=== PATIENT | female | born 1950 | race African-American/Black ===

== ENCOUNTER 2019-09-01 11:41 | Emergency (ER) | payer MEDICARE, OTHER ==
[~2019-09-01] VITALS: Ht 160 cm; Wt 136.1 kg
[~2019-09-01 11:41] MED LIST: AMLO10TA13 PO; CARV3.1240 PO; ENAL20TA PO
[2019-09-01 13:14] LABS: Basophils # (auto) 0 uL; Basophils % (auto) 0.8 % (0.0-2.0); Eosinophils # (auto) 0.1 uL; Lymphocytes # (auto) 2.2 uL; Neutrophils # (auto) 3.4 uL
[2019-09-01 13:15] LABS: Hematocrit 47.7 % (36.0-46.0); Hemoglobin 14.9 g/dL (12.2-16.2); Lymphocytes % (auto) 36.4 % (10.0-50.0); Mean Corpuscular Hemoglobin 21.3 pg (28.0-32.0); Mean Corpuscular Hgb Conc. 31.2 g/dL (32.0-36.0); Mean Corpuscular Volume 68.4 fL (80.0-100.0); Monocytes # (auto) 0.4 uL; Neutrophils % (auto) 54.8 % (37.0-80.0); Nucleated Red Blood Cells % 0.2 %; Platelet Count (auto) 270 10^3/uL (140-450); Red Blood Cells 6.97 10^6/uL (4.0-5.20); Red Cell Distribution Width 16.5 % (11.8-14.3); White Blood Cell 6.1 10^3/uL (4.4-10.8)
[2019-09-01 13:34] LABS: Alanine Aminotransferase 14 U/L (13-56); Albumin 3.1 g/dL (3.4-5.0); Anion Gap 7 (5-15); Aspartate Aminotransferase 9 U/L (15-37); BUN/Creatinine Ratio 22.1; Blood Urea Nitrogen 25 mg/dL (7-18); Calcium 8.7 mg/dL (8.5-10.1); Carbon Dioxide 26 mmol/L (21-32); Chloride 112 mmol/L (98-107); GFR African American 61 mL/min; GFR Non-African American 51 mL/min; Glucose 108 mg/dL (74-106); Potassium 3.5 mmol/L (3.5-5.1); Sodium 145 mmol/L (136-145)
[2019-09-01 13:39] LABS: Alkaline Phosphatase 87 U/L (45-117); Bilirubin, Total 0.3 mg/dL (0.2-1.0); Total Protein 8.3 g/dL (6.4-8.2)
[2019-09-02] VITALS: BP 133/76
== END 2019-09-02 01:20 | disposition home or self-care (01) ==
LOC: EDBD 11:41 → ER 11:41
DX: K43.9 Ventral hernia without obstruction or gangrene (principal); I10 Essential (primary) hypertension; K58.9 Irritable bowel syndrome, unspecified; Z88.8 Allergy status to other drugs, medicaments and biological substances
CPT/HCPCS: 36415; 71045; 74176; 80053; 83735; 84484; 85025; 93005

== ENCOUNTER 2019-10-09 21:11 | Inpatient (IN) | payer MEDICARE, OTHER ==
[~2019-10-09] VITALS: Ht 160 cm; Wt 150.7 kg
[2019-10-09] MEDS ORDERED: cloNIDine HCL 0.1 MG TAB PO ONE (21:30)
[2019-10-09 22:18] LABS: Basophils # (auto) 0 10 ^3/uL (0-0.2); Eosinophils # (auto) 0.1 10 ^3/uL (0-0.8); Hemoglobin 14.6 g/dL (12.2-16.2); Lymphocytes # (auto) 2.4 10 ^3/uL (0.4-5.4); Monocytes # (auto) 0.6 10 ^3/uL (0-1.3); Neutrophils # (auto) 4.2 10 ^3/uL (1.6-8.6)
[2019-10-09 22:20] LABS: Basophils % (auto) 0.3 % (0.0-2.0); Eosinophils % (auto) 1.2 % (0.0-7.0); Hematocrit 46.6 % (36.0-46.0); Mean Corpuscular Hemoglobin 21.7 pg (28.0-32.0); Mean Corpuscular Hgb Conc. 31.3 g/dL (32.0-36.0); Mean Corpuscular Volume 69.1 fL (80.0-100.0); Monocytes % (auto) 8.3 % (0.0-12.0); Neutrophils % (auto) 57.2 % (37.0-80.0); Nucleated Red Blood Cells % 0.1 %; Platelet Count (auto) 250 10^3/uL (140-450); Red Blood Cells 6.74 10^6/uL (4.0-5.20); Red Cell Distribution Width 17.3 % (11.8-14.3); White Blood Cell 7.3 10^3/uL (4.4-10.8)
[2019-10-09 22:36] LABS: INR 0.96 (0.9-1.15); Partial Thromboplastin Time 31.1 sec (23.64-32.05)
[2019-10-09 22:37] LABS: Albumin 3.1 g/dL (3.4-5.0); Calcium 8.9 mg/dL (8.5-10.1); Potassium 3.7 mmol/L (3.5-5.1)
[2019-10-09 22:42] LABS: BUN/Creatinine Ratio 15.9; Bilirubin, Total 0.2 mg/dL (0.2-1.0); Total Protein 8.6 g/dL (6.4-8.2)
[2019-10-10] MEDS ORDERED: ONDANSETRON HCL 4 MG/2 ML VIAL IV PRN (01:30)
[2019-10-10] MEDS ORDERED: MORPHINE SULFATE 4 MG/ML SYR/VIAL IV PRN (01:30)
[2019-10-10] MEDS ORDERED: MORPHINE SULF INJ 2 MG/ML SYRINGE 1ML IV PRN ×2 (01:30→16:15)
[2019-10-10] MEDS ORDERED: NITROGLYCERIN 0.4 MG SL TAB SL PRN ×2 (01:30)
[2019-10-10] MEDS ORDERED: ACETAMINOPHEN 325 MG TAB PO PRN (01:30)
[2019-10-10] MEDS ORDERED: DEXTROSE (50%) 50ML SYRG IV PRN (02:00)
[2019-10-10] MEDS: SODIUM CHLORIDE 0.9% 1,000 ML IV SCH ×3 (03:38→22:40)
[2019-10-10] MEDS: ENOXAPARIN SOD 150 MG/1 ML SYRINGE SC SCH ×2 (03:38→14:08)
[2019-10-10] MEDS: InsuLIN REG 1unit/0.01ml Soln (100units/ml) SC SCH ×4 (04:00→16:00)
[2019-10-10] MEDS: ACCU-CHEK COMFORT CURVE STRIP VI SCH ×4 (04:07→16:08)
[2019-10-10 05:29] VITALS: BP 161/83
[2019-10-10 05:43] VITALS: BP 161/83
--- NOTE | 2019-10-10 05:58 | NUR ---
Telemetry admit from ER XIAO JJ admitted to Telemetry unit after SBAR received. Patient oriented to FAY REED RN primary RN, unit, room, bed, and unit policies regarding patient care and visiting hours. Patient now on continuous telemetry monitoring, tele box #[id number] and telemetry reading on arrival to unit is NSR. Patient is on room air, weighed by bedscale and encouraged to call if they need something. All questions and concerns addressed, patient verbalized understanding. Note: Patient stated chest pain is not as bad as before, vital signs taken and recorded, pericare done since pt had incontinence, noted left buttock healed ulcer.
--- NOTE | 2019-10-10 07:40 | NUR ---
OPENING SHIFT NOTE Care of patient assumed from NOC RN. Patient is AOx4, no S/S of distress, or SOB. Patient has no complaints of pain at this time. Bed is in lowest locked position, side rails up x2, and call light is within reach. Patient educated on POC, verbalized understanding. Will continue to monitor q hr and PRN.
[2019-10-10 09:00] VITALS: BP 161/66
[2019-10-10] MEDS: CLOPIDOGREL BISULFATE 75 MG TAB PO SCH (09:47)
[2019-10-10] MEDS: ASPirin 81 mg TAB PO SCH (09:47)
[2019-10-10] MEDS: DOCUSATE SOD 100 MG CAP PO SCH (09:49)
[2019-10-10] MEDS: LISINOPRIL 20 MG TAB PO SCH (09:50)
[2019-10-10] MEDS: amLODIPine BESYLATE 5 MG TAB PO SCH (09:51)
[2019-10-10 09:54] LABS: Calcium 8.8 mg/dL (8.5-10.1); Potassium 3.7 mmol/L (3.5-5.1)
[2019-10-10] MEDS: CARVEDILOL 3.125 MG TAB PO SCH ×2 (10:00→21:42)
[2019-10-10 10:01] LABS: BUN/Creatinine Ratio 20.3
[2019-10-10 10:45] LABS: Basophils # (auto) 0 10 ^3/uL (0-0.2); Basophils % (auto) 0.4 % (0.0-2.0); Eosinophils # (auto) 0.2 10 ^3/uL (0-0.8); Hemoglobin 14.3 g/dL (12.2-16.2); Lymphocytes # (auto) 3.4 10 ^3/uL (0.4-5.4); Monocytes # (auto) 0.6 10 ^3/uL (0-1.3); Nucleated Red Blood Cells % 0.3 %; Platelet Count (auto) 246 10^3/uL (140-450); Red Cell Distribution Width 17.1 % (11.8-14.3)
[2019-10-10 10:47] LABS: Eosinophils % (auto) 2.5 % (0.0-7.0); Hematocrit 46.6 % (36.0-46.0); Lymphocytes % (auto) 48.7 % (10.0-50.0); Mean Corpuscular Hemoglobin 21.4 pg (28.0-32.0); Mean Corpuscular Hgb Conc. 30.7 g/dL (32.0-36.0); Mean Corpuscular Volume 69.7 fL (80.0-100.0); Monocytes % (auto) 8.3 % (0.0-12.0); Neutrophils # (auto) 2.8 10 ^3/uL (1.6-8.6); Neutrophils % (auto) 40.1 % (37.0-80.0); Red Blood Cells 6.68 10^6/uL (4.0-5.20)
[2019-10-10 12:30] VITALS: BP 119/71
--- NOTE | 2019-10-10 16:35 | NUR ---
IV insertion IV access obtained, via clean sterile technique by inserting 20 gauge catheter at [facility] after 6 attempts. IV secured properly. No trauma to site. Patient tolerated procedure well. Addendum: 10/10/19 at 1836 by SIMÓN FARRELL RN Wrong patient
[2019-10-10] MEDS: MORPHINE SULF INJ 2 MG/ML SYRINGE 1ML IV PRN ×2 (16:42→21:42)
[2019-10-10 17:15] VITALS: BP 126/75
--- NOTE | 2019-10-10 18:27 | NUR ---
Unable to do blood draw. Lab attempted to draw D-dimer, notified me that they were unable to draw blood. surveillance camera technician will send for another tech to draw blood.
--- NOTE | 2019-10-10 19:00 | NUR ---
END OF SHIFT NOTE. Endorsed care to NOC JENNA Marin. Patient has no s/s of SOB, pain, or distress at this time.
[2019-10-10] MEDS: ATORVASTATIN 20 MG TAB PO SCH (21:41)
[2019-10-10 22:00] VITALS: BP 129/66
[2019-10-11] MEDS: ENOXAPARIN SOD 150 MG/1 ML SYRINGE SC SCH ×2 (02:26→15:12)
[2019-10-11 05:00] VITALS: BP 134/53
[2019-10-11 05:49] LABS: Basophils # (auto) 0 10 ^3/uL (0-0.2); Basophils % (auto) 0.2 % (0.0-2.0); Eosinophils # (auto) 0.2 10 ^3/uL (0-0.8); Eosinophils % (auto) 3.8 % (0.0-7.0); Hematocrit 41.5 % (36.0-46.0); Hemoglobin 12.9 g/dL (12.2-16.2); Lymphocytes # (auto) 3.2 10 ^3/uL (0.4-5.4); Lymphocytes % (auto) 52.3 % (10.0-50.0); Mean Corpuscular Hemoglobin 21.7 pg (28.0-32.0); Mean Corpuscular Hgb Conc. 31.1 g/dL (32.0-36.0); Mean Corpuscular Volume 69.7 fL (80.0-100.0); Monocytes # (auto) 0.5 10 ^3/uL (0-1.3); Monocytes % (auto) 8.2 % (0.0-12.0); Neutrophils # (auto) 2.2 10 ^3/uL (1.6-8.6); Neutrophils % (auto) 35.5 % (37.0-80.0); Nucleated Red Blood Cells % 0.1 %; Platelet Count (auto) 228 10^3/uL (140-450); Red Blood Cells 5.96 10^6/uL (4.0-5.20); Red Cell Distribution Width 17.1 % (11.8-14.3); White Blood Cell 6.2 10^3/uL (4.4-10.8)
[2019-10-11 06:29] LABS: BUN/Creatinine Ratio 19.8; Calcium 8.3 mg/dL (8.5-10.1); Potassium 3.6 mmol/L (3.5-5.1)
--- NOTE | 2019-10-11 07:30 | NUR ---
Opening Shift Note RECEIVED REPORT FROM NOC RN. Assumed care of patient, awake and alert. No S/S of distress/SOB or pain. BED IN LOWEST, LOCKED POSITION WITH SIDERAILS UP x2 AND CALL LIGHT WITHIN REACH. Instructed on POC and to call for assist PRN, will continue to monitor for changes Q1hr and PRN.
[2019-10-11 08:45] VITALS: BP 148/59
[2019-10-11] MEDS ORDERED: ADENOSINE IV STA (08:54)
[2019-10-11] MEDS ORDERED: GIVE UN DILUTED IV STA (08:54)
[2019-10-11 10:06] VITALS: BP 134/58
[2019-10-11] MEDS: ASPirin 81 mg TAB PO SCH (11:48)
[2019-10-11] MEDS: CLOPIDOGREL BISULFATE 75 MG TAB PO SCH (11:48)
[2019-10-11] MEDS: DOCUSATE SOD 100 MG CAP PO SCH (11:48)
[2019-10-11] MEDS: CARVEDILOL 3.125 MG TAB PO SCH ×2 (11:49→21:12)
[2019-10-11] MEDS: amLODIPine BESYLATE 5 MG TAB PO SCH (11:49)
[2019-10-11] MEDS: LISINOPRIL 20 MG TAB PO SCH (11:49)
--- NOTE | 2019-10-11 12:00 | NUR ---
RECORDS OBTAINED FROM [facility]. RECORDS PLACED IN HARD CHART.
[2019-10-11 12:57] VITALS: BP 129/96
[2019-10-11] MEDS: SODIUM CHLORIDE 0.9% 1,000 ML IV SCH (16:55)
[2019-10-11 17:00] VITALS: BP 139/66
[2019-10-11] MEDS: MORPHINE SULF INJ 2 MG/ML SYRINGE 1ML IV PRN (19:45)
[2019-10-11] MEDS: ATORVASTATIN 20 MG TAB PO SCH (21:13)
[2019-10-11 21:47] VITALS: BP 138/63
[2019-10-12 02:00] VITALS: BP 129/67
[2019-10-12] MEDS: ENOXAPARIN SOD 150 MG/1 ML SYRINGE SC SCH (02:10)
[2019-10-12 05:00] VITALS: BP 132/70
[2019-10-12] MEDS: SODIUM CHLORIDE 0.9% 1,000 ML IV SCH (06:31)
[2019-10-12 09:00] VITALS: BP 153/70
[2019-10-12] MEDS: CLOPIDOGREL BISULFATE 75 MG TAB PO SCH (09:34)
[2019-10-12] MEDS: amLODIPine BESYLATE 5 MG TAB PO SCH (09:35)
[2019-10-12] MEDS: LISINOPRIL 20 MG TAB PO SCH (09:36)
[2019-10-12] MEDS: CARVEDILOL 3.125 MG TAB PO SCH (09:37)
[2019-10-12] MEDS: DOCUSATE SOD 100 MG CAP PO SCH (09:37)
[2019-10-12] MEDS: ASPirin 81 mg TAB PO SCH (09:37)
[2019-10-12 13:00] VITALS: BP 151/65
[2019-10-12] MEDS ORDERED: ATOR10TA52 PO (14:43)
[2019-10-12] MEDS ORDERED: ASPI81CH43 PO (14:43)
[2019-10-12 15:50] VITALS: BP 151/65
[2019-10-12 17:00] VITALS: BP 148/76
--- NOTE | 2019-10-12 18:50 | NUR ---
DISCHARGE INSTRUCTIONS GIVEN. PT STATED, " I HAVE BEEN OBESE SINCE I WAS BORN. I CANT CHANGE. " ALSO STATED SHE CANNOT STOP SMOKING." IV AND TELE BOX REMOVED. ALL APPROPRIATE PAPERWORK SIGNED. PATIENT DISCHARGED HOME.
== END 2019-10-12 18:45 | disposition home or self-care (01) | DRG 199 ==
LOC: ER 21:12 → TELE 21:13 → TELE-WESTW 10-10 04:25
PROVIDERS: ADMIT Hospitalist; ATTEND Internal Medicine
DX: I16.9 Hypertensive crisis, unspecified (principal); N17.0 Acute kidney failure with tubular necrosis; N18.3 Chronic kidney disease, stage 3 (moderate); E66.01 Morbid (severe) obesity due to excess calories; Z68.43 Body mass index [BMI] 50.0-59.9, adult; E78.5 Hyperlipidemia, unspecified; M19.90 Unspecified osteoarthritis, unspecified site; K42.9 Umbilical hernia without obstruction or gangrene; I12.9 Hypertensive chronic kidney disease with stage 1 through stage 4 chronic kidney disease, or unspecified chronic kidney disease; R73.9 Hyperglycemia, unspecified; G89.4 Chronic pain syndrome; F17.210 Nicotine dependence, cigarettes, uncomplicated; Z79.899 Other long term (current) drug therapy; Z98.51 Tubal ligation status; Z88.8 Allergy status to other drugs, medicaments and biological substances; Z83.3 Family history of diabetes mellitus; Z82.49 Family history of ischemic heart disease and other diseases of the circulatory system
CPT/HCPCS: 36415; 71045; 78452; 80048; 80053; 80061; 82962; 83036; 83880; 84484; 85025; 85379; 85610; 85730; 93005; 93017; G0378; J0153

== ENCOUNTER 2021-09-09 01:10 | Inpatient (IN) | payer OTHER, MEDICAID ==
[~2021-09-09] VITALS: Ht 160 cm; Wt 134.7 kg
[~2021-09-09 01:10] MED LIST changes: +AMLO-496 PO; -AMLO10TA13 PO; +ASPI81CH43 PO; +ATOR10TA52 PO; -ENAL20TA PO; +ENAL20TA8 PO
[2021-09-09 02:48] LABS: Basophils # (auto) 0 10 ^3/uL (0-0.2); Basophils % (auto) 0.6 % (0.0-2.0); Eosinophils # (auto) 0.1 10 ^3/uL (0-0.8); Eosinophils % (auto) 2.5 % (0.0-7.0); Hematocrit 38.1 % (36.0-46.0); Lymphocytes # (auto) 2.3 10 ^3/uL (0.4-5.4); Mean Corpuscular Hemoglobin 21.5 pg (28.0-32.0); Mean Corpuscular Hgb Conc. 31.6 g/dL (32.0-36.0); Mean Corpuscular Volume 68.1 fL (80.0-100.0); Monocytes # (auto) 0.6 10 ^3/uL (0-1.3); Monocytes % (auto) 9.4 % (0.0-12.0); Neutrophils # (auto) 2.9 10 ^3/uL (1.6-8.6); Neutrophils % (auto) 49.5 % (37.0-80.0); Nucleated Red Blood Cells % 0.2 %; Red Cell Distribution Width 17.8 % (11.8-14.3); White Blood Cell 5.9 10^3/uL (4.4-10.8)
[2021-09-09 03:03] LABS: INR 0.97 (0.9-1.15); Partial Thromboplastin Time 23.3 sec (23.6-33.0)
[2021-09-09 03:12] LABS: Albumin 2.5 g/dL (3.4-5.0); Calcium 8.6 mg/dL (8.5-10.1)
[2021-09-09 03:13] LABS: BUN/Creatinine Ratio 12.4; Potassium 4.3 mmol/L (3.5-5.1)
[2021-09-09 03:17] LABS: Bilirubin, Total 0.4 mg/dL (0.2-1.0); Total Protein 7.6 g/dL (6.4-8.2)
[2021-09-09] MEDS ORDERED: LABETALOL HCL 5 MG/ML 4ML SYRINGE IV ONE (03:45)
[2021-09-09] MEDS ORDERED: ASPirin 325 MG TAB PO ONE (03:45)
[2021-09-09] MEDS ORDERED: ACETAMINOPHEN 325 MG TAB PO PRN (06:15)
[2021-09-09] MEDS ORDERED: HYDROcodone-ACET 5/325MG TAB PO PRN (06:15)
[2021-09-09] MEDS ORDERED: ONDANSETRON HCL 4 MG/2 ML VIAL IV PRN (06:15)
[2021-09-09] MEDS ORDERED: DOCUSATE SOD 100 MG CAP PO PRN (06:15)
[2021-09-09] MEDS ORDERED: AZITHROMYCIN 500MG/ 250ML 250 ML IV ONE (06:15)
[2021-09-09] MEDS ORDERED: MORPHINE SULFATE INJECTION 2 MG/ML SYRG IV PRN (06:45)
[2021-09-09] MEDS ORDERED: NITROGLYCERIN 0.4 MG SL TAB SL PRN (06:45)
[2021-09-09] MEDS ORDERED: FUROSEMIDE 40 MG/4 ML VIAL IV ONE (07:00)
[2021-09-09 08:00] LABS: Basophils # (auto) 0 10 ^3/uL (0-0.2); Eosinophils # (auto) 0.2 10 ^3/uL (0-0.8); Eosinophils % (auto) 3.5 % (0.0-7.0); Hemoglobin 11.4 g/dL (12.2-16.2); Monocytes # (auto) 0.6 10 ^3/uL (0-1.3)
[2021-09-09 08:01] LABS: Basophils % (auto) 0.4 % (0.0-2.0); Hematocrit 35.8 % (36.0-46.0); Lymphocytes # (auto) 2.7 10 ^3/uL (0.4-5.4); Lymphocytes % (auto) 48.6 % (10.0-50.0); Mean Corpuscular Hgb Conc. 31.8 g/dL (32.0-36.0); Monocytes % (auto) 11.5 % (0.0-12.0); Nucleated Red Blood Cells % 0.3 %; Red Blood Cells 5.23 10^6/uL (4.0-5.20); Red Cell Distribution Width 17.7 % (11.8-14.3); White Blood Cell 5.5 10^3/uL (4.4-10.8)
[2021-09-09 08:04] LABS: Mean Corpuscular Hemoglobin 21.7 pg (28.0-32.0); Mean Corpuscular Volume 68.3 fL (80.0-100.0)
[2021-09-09 08:15] LABS: Albumin 2.5 g/dL (3.4-5.0); Calcium 8.5 mg/dL (8.5-10.1); Potassium 3.3 mmol/L (3.5-5.1)
[2021-09-09 08:19] LABS: BUN/Creatinine Ratio 13.2; Bilirubin, Total 0.4 mg/dL (0.2-1.0); Total Protein 6.9 g/dL (6.4-8.2)
[2021-09-09] MEDS ORDERED: METOPROLOL TARTRATE 25 MG TAB PO SCH (10:00)
[2021-09-09 10:21] LABS: Urine Bacteria MANY /hpf (None Seen); Urine Blood Negative /uL (Negative); Urine Specific Gravity 1.005 (1.001-1.035); Urine WBC 15 /hpf (0 - 5)
[2021-09-09] MEDS: ENOXAPARIN SOD 40 MG/0.4 ML SYRINGE SC SCH (11:38)
[2021-09-09] MEDS: amLODIPine BESYLATE 5 MG TAB PO SCH (11:39)
[2021-09-09] MEDS: ASPirin 81 mg TAB PO SCH (11:39)
[2021-09-09] MEDS: CARVEDILOL 12.5 MG TAB PO SCH ×2 (11:39→22:24)
[2021-09-09] MEDS: FAMOTIDINE (10MG/ML) 2ML VL IV SCH (11:40)
[2021-09-09] MEDS: MORPHINE SULFATE 4 MG/ML SYR/VIAL IV PRN ×2 (14:54→20:14)
[2021-09-09] MEDS: ATORVASTATIN 20 MG TAB PO SCH (22:24)
[2021-09-10] MEDS: MORPHINE SULFATE 4 MG/ML SYR/VIAL IV PRN ×2 (02:57→10:21)
[2021-09-10] MEDS ORDERED: AZITHROMYCIN 500MG/ 250ML 250 ML IV SCH (10:00)
[2021-09-10] MEDS: FUROSEMIDE 40 MG/4 ML VIAL IV SCH ×2 (10:00→10:20)
[2021-09-10] MEDS: FAMOTIDINE (10MG/ML) 2ML VL IV SCH (10:17)
[2021-09-10] MEDS: ASPirin 81 mg TAB PO SCH (10:18)
[2021-09-10] MEDS: CARVEDILOL 12.5 MG TAB PO SCH ×2 (10:18→22:17)
[2021-09-10] MEDS: ENOXAPARIN SOD 40 MG/0.4 ML SYRINGE SC SCH (10:19)
[2021-09-10] MEDS: amLODIPine BESYLATE 5 MG TAB PO SCH (10:19)
[2021-09-10] MEDS ORDERED: NIFE1TAB31 PO (11:37)
[2021-09-10 11:38] VITALS: BP 135/60
[2021-09-10 12:00] VITALS: BP 113/56
[2021-09-10 12:38] LABS: Eosinophils # (auto) 0.3 10 ^3/uL (0-0.8); Monocytes # (auto) 0.5 10 ^3/uL (0-1.3); Neutrophils # (auto) 2.1 10 ^3/uL (1.6-8.6)
[2021-09-10 12:41] LABS: Basophils # (auto) 0.1 10 ^3/uL (0-0.2); Basophils % (auto) 1.2 % (0.0-2.0); Eosinophils % (auto) 5.7 % (0.0-7.0); Hematocrit 36.7 % (36.0-46.0); Hemoglobin 11.6 g/dL (12.2-16.2); Lymphocytes % (auto) 40.2 % (10.0-50.0); Mean Corpuscular Hemoglobin 21.9 pg (28.0-32.0); Mean Corpuscular Hgb Conc. 31.5 g/dL (32.0-36.0); Mean Corpuscular Volume 69.3 fL (80.0-100.0); Monocytes % (auto) 10.9 % (0.0-12.0); Nucleated Red Blood Cells % 0.1 %; Red Blood Cells 5.29 10^6/uL (4.0-5.20); Red Cell Distribution Width 18.5 % (11.8-14.3)
[2021-09-10 13:04] LABS: Potassium 3.9 mmol/L (3.5-5.1)
[2021-09-10 13:11] LABS: Albumin 2.6 g/dL (3.4-5.0); BUN/Creatinine Ratio 11.5; Bilirubin, Total 0.4 mg/dL (0.2-1.0); Calcium 8.7 mg/dL (8.5-10.1); Total Protein 7.1 g/dL (6.4-8.2)
[2021-09-10 22:00] VITALS: BP 127/47
[2021-09-10] MEDS: ATORVASTATIN 20 MG TAB PO SCH (22:17)
[2021-09-10] MEDS: CARVEDILOL 3.125 MG TAB PO SCH (23:40)
[2021-09-11 05:00] VITALS: BP 130/50
[2021-09-11 08:09] LABS: BUN/Creatinine Ratio 15.1; Calcium 8.5 mg/dL (8.5-10.1); Potassium 3.9 mmol/L (3.5-5.1)
[2021-09-11 09:00] VITALS: BP 141/57
[2021-09-11] MEDS: FUROSEMIDE 40 MG/4 ML VIAL IV SCH (09:48)
[2021-09-11] MEDS: CARVEDILOL 3.125 MG TAB PO SCH ×2 (09:48→22:00)
[2021-09-11] MEDS: ASPirin 81 mg TAB PO SCH (09:48)
[2021-09-11] MEDS: amLODIPine BESYLATE 5 MG TAB PO SCH (09:49)
[2021-09-11] MEDS: AZITHROMYCIN 250 MG TAB PO SCH (09:49)
[2021-09-11] MEDS: ENOXAPARIN SOD 40 MG/0.4 ML SYRINGE SC SCH (09:50)
[2021-09-11] MEDS ORDERED: AML5T PO (12:38)
[2021-09-11] MEDS ORDERED: CAR3125T PO (12:38)
[2021-09-11] MEDS ORDERED: CAR3125T OR (12:38)
[2021-09-11] MEDS ORDERED: AMLO-496 PO (12:39)
[2021-09-11] MEDS ORDERED: ASCO500T11 PO (12:45)
[2021-09-11] MEDS ORDERED: LEVO-28 PO (12:45)
[2021-09-11] MEDS ORDERED: CHOL20007 OR (12:45)
[2021-09-11] MEDS ORDERED: ZINC220C10 PO (12:45)
[2021-09-11] MEDS ORDERED: DEXA6TAB6 PO (12:46)
[2021-09-11 17:00] VITALS: BP 135/74
[2021-09-11 22:00] VITALS: BP 121/50
[2021-09-11] MEDS: ATORVASTATIN 20 MG TAB PO SCH (22:06)
[2021-09-12 04:45] VITALS: BP_SYST 133; BP_SYST 99; BP_DIAS 48; BP_DIAS 60
[2021-09-12 08:00] VITALS: BP 145/59
[2021-09-12] MEDS: FUROSEMIDE 40 MG/4 ML VIAL IV SCH (08:55)
[2021-09-12] MEDS: amLODIPine BESYLATE 5 MG TAB PO SCH (08:56)
[2021-09-12] MEDS: ASPirin 81 mg TAB PO SCH (08:56)
[2021-09-12] MEDS: ENOXAPARIN SOD 40 MG/0.4 ML SYRINGE SC SCH (08:57)
[2021-09-12] MEDS: CARVEDILOL 3.125 MG TAB PO SCH (08:57)
[2021-09-12] MEDS: AZITHROMYCIN 250 MG TAB PO SCH (08:57)
== END 2021-09-12 15:18 | disposition home or self-care (01) | DRG 177 ==
LOC: ER 01:10 → EDBD 01:10 → TELE 06:45 → TELE-WESTW 09-10 09:19
PROVIDERS: ADMIT Nurse Practitioner Family; ATTEND Internal Medicine Geriatric Medicine
DX: U07.1 COVID-19 (principal); J12.82 Pneumonia due to coronavirus disease 2019; Z68.43 Body mass index [BMI] 50.0-59.9, adult; I50.9 Heart failure, unspecified; E88.09 Other disorders of plasma-protein metabolism, not elsewhere classified; E66.01 Morbid (severe) obesity due to excess calories; F17.210 Nicotine dependence, cigarettes, uncomplicated; I11.0 Hypertensive heart disease with heart failure; Z74.01 Bed confinement status; Z82.49 Family history of ischemic heart disease and other diseases of the circulatory system; Z83.3 Family history of diabetes mellitus; Z88.8 Allergy status to other drugs, medicaments and biological substances
CPT/HCPCS: 36415; 71045; 80048; 80053; 81001; 83880; 84484; 85025; 85610; 85730; 87426; 93005; 93306; 96365; 96375; G0378; J2405; J3490

== ENCOUNTER 2023-01-29 15:58 | Inpatient (IN) | payer MEDICARE, MEDICAID ==
[~2023-01-29] VITALS: Ht 160 cm; Wt 130.9 kg
[2023-01-29] VITALS (10 sets, daily range): BP systolic 97–156; BP diastolic 54–67
[~2023-01-29 15:58] MED LIST changes: -AMLO-496 PO; +AMLO1TAB23 PO; +ASCO500T11 PO; +CAR3125T OR; -CARV3.1240 PO; +CHOL20007 OR; +DEXA6TAB6 PO; -ENAL20TA8 PO; +LEVO500T91 PO; +ZINC220C10 PO
[2023-01-29] MEDS ORDERED: HYDROmorphone HCL 2 MG/ML VL/or syr IV ONE (16:30)
[2023-01-29] MEDS ORDERED: ONDANSETRON HCL 4 MG/2 ML VIAL IV ONE ×2 (16:30→18:30)
[2023-01-29] MEDS ORDERED: HYDROcodone-ACET 10/325MG TAB PO ONE (17:00)
[2023-01-29] MEDS ORDERED: ONDANSETRON ODT 4 MG TAB PO ONE (17:00)
[2023-01-29 17:11] LABS: Basophils # (auto) 0.1 10 ^3/uL (0-0.2); Basophils % (auto) 1.1 % (0.0-2.0); Eosinophils # (auto) 0.2 10 ^3/uL (0-0.8); Eosinophils % (auto) 3.2 % (0.0-7.0); Hematocrit 34.9 % (36.0-46.0); Hemoglobin 10.8 g/dL (12.2-16.2); Lymphocytes # (auto) 2.6 10 ^3/uL (0.4-5.4); Lymphocytes % (auto) 43.8 % (10.0-50.0); Mean Corpuscular Hemoglobin 20.1 pg (28.0-32.0); Mean Corpuscular Hgb Conc. 30.8 g/dL (32.0-36.0); Mean Corpuscular Volume 65.1 fL (80.0-100.0); Monocytes # (auto) 0.7 10 ^3/uL (0-1.3); Monocytes % (auto) 12.5 % (0.0-12.0); Neutrophils # (auto) 2.3 10 ^3/uL (1.6-8.6); Neutrophils % (auto) 39.4 % (37.0-80.0); Nucleated Red Blood Cells % 0.1 %; Red Blood Cells 5.36 10^6/uL (4.0-5.20); White Blood Cell 5.9 10^3/uL (4.4-10.8)
[2023-01-29 17:29] LABS: INR 1.09 (0.9-1.15); Partial Thromboplastin Time 36.5 SEC (24.5-34.5)
[2023-01-29] MEDS ORDERED: metroNIDAZOLE 500MG/100ML 100 ML IV ONE (17:30)
[2023-01-29] MEDS ORDERED: levoFLOXacin 500MG 100 ML IV ONE (17:30)
[2023-01-29 17:33] LABS: Albumin 2.5 g/dL (3.4-5.0); Calcium 8.6 mg/dL (8.5-10.1); Magnesium 2.4 mg/dL (1.6-2.6); Potassium 3.8 mmol/L (3.5-5.1)
[2023-01-29 17:36] LABS: BUN/Creatinine Ratio 10.7 (10.0-20.0); Bilirubin, Total 0.3 mg/dL (0.2-1.0)
[2023-01-29] MEDS ORDERED: MORPHINE SULFATE INJ 2 MG/ml SYRG IV PRN (18:30)
[2023-01-29] MEDS ORDERED: HYDROmorphone HCL 2 MG/ML VL/or syr IV PRN (18:30)
[2023-01-29] MEDS ORDERED: MORPHINE SULFATE 4 MG/ML SYR/VIAL IV ONE (18:30)
[2023-01-29] MEDS ORDERED: FUROSEMIDE 20 MG/2 ML VIAL IV ONE (19:00)
[2023-01-29] MEDS: metroNIDAZOLE 500MG/100ML 100 ML IV SCH (22:38)
[2023-01-30] VITALS (55 sets, daily range): BP systolic 116–176; BP diastolic 41–86
[2023-01-30 04:53] LABS: Basophils # (auto) 0 10 ^3/uL (0-0.2); Eosinophils # (auto) 0.1 10 ^3/uL (0-0.8); Hemoglobin 10.4 g/dL (12.2-16.2); Mean Corpuscular Hemoglobin 20.5 pg (28.0-32.0); Monocytes # (auto) 0.7 10 ^3/uL (0-1.3); Neutrophils # (auto) 3.8 10 ^3/uL (1.6-8.6); Nucleated Red Blood Cells % 0.1 %; Red Blood Cells 5.08 10^6/uL (4.0-5.20); White Blood Cell 6.7 10^3/uL (4.4-10.8)
[2023-01-30 04:55] LABS: Basophils % (auto) 0.4 % (0.0-2.0); Eosinophils % (auto) 1.8 % (0.0-7.0); Hematocrit 34.5 % (36.0-46.0); Lymphocytes % (auto) 30.7 % (10.0-50.0); Mean Corpuscular Hgb Conc. 30.1 g/dL (32.0-36.0); Mean Corpuscular Volume 67.9 fL (80.0-100.0); Monocytes % (auto) 10.2 % (0.0-12.0); Neutrophils % (auto) 56.9 % (37.0-80.0); Red Cell Distribution Width 16.4 % (11.8-14.3)
[2023-01-30 05:11] LABS: Albumin 2.4 g/dL (3.4-5.0); Potassium 3.9 mmol/L (3.5-5.1)
[2023-01-30 05:16] LABS: Bilirubin, Total 0.4 mg/dL (0.2-1.0); Total Protein 8.4 g/dL (6.4-8.2)
[2023-01-30] MEDS: metroNIDAZOLE 500MG/100ML 100 ML IV SCH ×3 (07:01→22:04)
[2023-01-30] MEDS: PANTOPRAZOLE 40 MG/10 ML VIAL INJ IV SCH (08:27)
[2023-01-30] MEDS: cefTRIAXone 1GM/50ML D5W 50 ML IV SCH (08:28)
[2023-01-30] MEDS: hydrALAZINE HCL 20 MG/ML VL IV PRN (08:28)
[2023-01-30] MEDS ORDERED: FUROSEMIDE 20 MG/2 ML VIAL IV SCH (10:00)
[2023-01-30] MEDS ORDERED: PPN PER PHARMACY 0 ML IV SCH (11:00)
[2023-01-30 11:34] LABS: Urine Bacteria FEW /hpf (None Seen); Urine Blood Negative /uL (Negative); Urine Mucus FEW (None Seen); Urine Specific Gravity 1.008 (1.001-1.035); Urine WBC 1 /hpf (0 - 5)
[2023-01-30] MEDS: HYDROmorphone HCL 2 MG/ML VL/or syr IV PRN ×2 (14:20→20:03)
[2023-01-30] MEDS ORDERED: VANCOMYCIN PER PHARMACY 0 MG IV SCH (15:30)
[2023-01-30] MEDS ORDERED: VANCOMYCIN 1GM/250ML 250 ML IV ONE (15:45)
[2023-01-30] MEDS ORDERED: LIDOCAINE 1% (LOCAL ANESTH.) PF 5ml SDV ID ONE (16:30)
[2023-01-30 16:33] LABS: Magnesium 1.9 mg/dL (1.6-2.6)
[2023-01-30] MEDS ORDERED: AMINO ACID INFUSION IN D10W 1,000 ML IV NR (20:00)
[2023-01-30] MEDS: SODIUM CHLOR 0.9% PF (SALINE LOCK) 10ML VIAL/SYR IV SCH (22:04)
[2023-01-31] MEDS ORDERED: DEXTROSE (50%) 50ML SYRG IV SCH
[2023-01-31] MEDS: ACCU-CHEK COMFORT CURVE STRIP VI SCH ×4 (00:33→17:04)
[2023-01-31 05:00] VITALS: BP 123/75
[2023-01-31] MEDS: VANCOMYCIN 1GM/250ML 250 ML IV SCH ×2 (05:20→20:21)
[2023-01-31] MEDS: HYDROmorphone HCL 2 MG/ML VL/or syr IV PRN ×2 (05:21→20:35)
[2023-01-31 06:06] LABS: Basophils # (auto) 0 10 ^3/uL (0-0.2); Eosinophils # (auto) 0.1 10 ^3/uL (0-0.8); Lymphocytes # (auto) 1.5 10 ^3/uL (0.4-5.4); Monocytes # (auto) 0.7 10 ^3/uL (0-1.3); White Blood Cell 5.5 10^3/uL (4.4-10.8)
[2023-01-31 06:12] LABS: Basophils % (auto) 0.6 % (0.0-2.0); Eosinophils % (auto) 1.9 % (0.0-7.0); Hematocrit 30.7 % (36.0-46.0); Hemoglobin 9.4 g/dL (12.2-16.2); Lymphocytes % (auto) 26.8 % (10.0-50.0); Mean Corpuscular Hemoglobin 20.4 pg (28.0-32.0); Mean Corpuscular Hgb Conc. 30.5 g/dL (32.0-36.0); Monocytes % (auto) 12.8 % (0.0-12.0); Neutrophils # (auto) 3.2 10 ^3/uL (1.6-8.6); Neutrophils % (auto) 57.9 % (37.0-80.0); Nucleated Red Blood Cells % 0.2 %; Red Blood Cells 4.58 10^6/uL (4.0-5.20); Red Cell Distribution Width 16.6 % (11.8-14.3)
[2023-01-31] MEDS: InsuLIN REG 1unit/0.01ml Soln (100units/ml) SC SCH ×4 (06:20→17:04)
[2023-01-31] MEDS: metroNIDAZOLE 500MG/100ML 100 ML IV SCH ×3 (06:24→22:07)
[2023-01-31 06:32] LABS: Free T3 2.67 pg/mL (2.3-4.2); Free T4 (Free Thyroxine) 1.21 ng/dL (0.89-1.76)
[2023-01-31 06:37] LABS: Alanine Aminotransferase < 6 U/L (13-56); Albumin 2.2 g/dL (3.4-5.0); Alkaline Phosphatase 49 U/L (45-117); Anion Gap 8 (5-15); Aspartate Aminotransferase 6 U/L (15-37); BUN/Creatinine Ratio 11.4 (10.0-20.0); Bilirubin, Total 0.3 mg/dL (0.2-1.0); Blood Urea Nitrogen 13 mg/dL (7-18); Calcium 7.8 mg/dL (8.5-10.1); Carbon Dioxide 23 mmol/L (21-32); Chloride 102 mmol/L (98-107); GFR African American 60 mL/min; GFR Non-African American 50 mL/min; Magnesium 2.1 mg/dL (1.6-2.6); Phosphorus 2.4 mg/dL (2.5-4.90); Sodium 133 mmol/L (136-145); Total Protein 7.6 g/dL (6.4-8.2)
[2023-01-31 06:41] LABS: Glucose 488 mg/dL (74-106); Potassium 2.9 mmol/L (3.5-5.1)
[2023-01-31] MEDS ORDERED: POTASSIUM CHL 20 Meq TABLET PO ONE (08:00)
[2023-01-31 09:00] VITALS: BP 141/40
[2023-01-31] MEDS ORDERED: POTASSIUM PHOSPHATE 22 MEQ in SODIUM CHL 0.9% 100 ML IV ONE (09:00)
[2023-01-31] MEDS: cefTRIAXone 1GM/50ML D5W 50 ML IV SCH (09:05)
[2023-01-31] MEDS: PANTOPRAZOLE 40 MG/10 ML VIAL INJ IV SCH (09:06)
[2023-01-31] MEDS: SODIUM CHLOR 0.9% PF (SALINE LOCK) 10ML VIAL/SYR IV SCH ×2 (09:06→22:07)
[2023-01-31 13:00] VITALS: BP 148/71
[2023-01-31] MEDS ORDERED: TPN PER PHARMACY 0 ML IV SCH (15:15)
[2023-01-31] MEDS: POTASSIUM CHL 20MEQ/100ML 100 ML IV SCH ×3 (15:17→18:29)
[2023-01-31 17:00] VITALS: BP 140/86
[2023-01-31] MEDS ORDERED: PPN PER PHARMACY IV NR ×9 (20:00)
[2023-01-31 22:07] VITALS: BP 104/67
[2023-02-01] MEDS: ACCU-CHEK COMFORT CURVE STRIP VI SCH ×4 (00:05→17:39)
[2023-02-01 05:00] VITALS: BP 123/82
[2023-02-01] MEDS: metroNIDAZOLE 500MG/100ML 100 ML IV SCH ×3 (05:21→21:57)
[2023-02-01] MEDS: InsuLIN REG 1unit/0.01ml Soln (100units/ml) SC SCH ×4 (05:34→17:43)
[2023-02-01 06:25] LABS: Chloride 110 mmol/L (98-107); Potassium 3.6 mmol/L (3.5-5.1); Sodium 139 mmol/L (136-145)
[2023-02-01 06:29] LABS: Alanine Aminotransferase < 6 U/L (13-56); Anion Gap 4 (5-15); Aspartate Aminotransferase 8 U/L (15-37); BUN/Creatinine Ratio 17.1 (10.0-20.0); Blood Urea Nitrogen 14 mg/dL (7-18); Calcium 8.2 mg/dL (8.5-10.1); Carbon Dioxide 25 mmol/L (21-32); GFR African American 88 mL/min; GFR Non-African American 73 mL/min; Glucose 101 mg/dL (74-106); Magnesium 1.7 mg/dL (1.6-2.6)
[2023-02-01 06:31] LABS: Alkaline Phosphatase 49 U/L (45-117); Bilirubin, Total 0.3 mg/dL (0.2-1.0); Phosphorus 2.8 mg/dL (2.5-4.90); Total Protein 7.2 g/dL (6.4-8.2)
[2023-02-01 07:16] LABS: Basophils # (auto) 0 10 ^3/uL (0-0.2); Eosinophils # (auto) 0.3 10 ^3/uL (0-0.8); Lymphocytes # (auto) 1.9 10 ^3/uL (0.4-5.4); Mean Corpuscular Hgb Conc. 30.1 g/dL (32.0-36.0); Neutrophils # (auto) 1.8 10 ^3/uL (1.6-8.6); Red Cell Distribution Width 16.2 % (11.8-14.3); White Blood Cell 4.6 10^3/uL (4.4-10.8)
[2023-02-01 07:17] LABS: Basophils % (auto) 0.7 % (0.0-2.0); Eosinophils % (auto) 6.4 % (0.0-7.0); Hematocrit 31.3 % (36.0-46.0); Hemoglobin 9.4 g/dL (12.2-16.2); Lymphocytes % (auto) 41.4 % (10.0-50.0); Mean Corpuscular Hemoglobin 19.9 pg (28.0-32.0); Mean Corpuscular Volume 66.2 fL (80.0-100.0); Monocytes # (auto) 0.5 10 ^3/uL (0-1.3); Monocytes % (auto) 11.7 % (0.0-12.0); Neutrophils % (auto) 39.8 % (37.0-80.0); Nucleated Red Blood Cells % 0.1 %; Red Blood Cells 4.73 10^6/uL (4.0-5.20)
[2023-02-01] MEDS ORDERED: POTASSIUM CHL 20MEQ/100ML 100 ML IV ONE (08:30)
[2023-02-01 09:00] VITALS: BP 127/79
[2023-02-01] MEDS: cefTRIAXone 1GM/50ML D5W 50 ML IV SCH (09:18)
[2023-02-01] MEDS: PANTOPRAZOLE 40 MG/10 ML VIAL INJ IV SCH (10:17)
[2023-02-01] MEDS: SODIUM CHLOR 0.9% PF (SALINE LOCK) 10ML VIAL/SYR IV SCH ×2 (10:17→21:58)
[2023-02-01] MEDS: HYDROmorphone HCL 2 MG/ML VL/or syr IV PRN (10:33)
[2023-02-01] MEDS: VANCOMYCIN 1GM/250ML 250 ML IV SCH (11:25)
[2023-02-01 12:50] VITALS: BP 116/68
[2023-02-01] MEDS ORDERED: MAGNESIUM SULFATE 1GM/100ML 100 ML IV ONE (13:00)
[2023-02-01 17:23] VITALS: BP 126/78
[2023-02-01] MEDS ORDERED: [UNRECOGNIZED DRUG - OTHER] IV NR ×10 (20:00)
[2023-02-01] MEDS ORDERED: POTASSIUM CHLORIDE IV NR ×9 (20:00)
[2023-02-01] MEDS ORDERED: POTASSIUM ACETATE IV NR ×10 (20:00)
[2023-02-01] MEDS ORDERED: [UNRECOGNIZED DRUG - OTHER] IV NR ×9 (20:00)
[2023-02-01] MEDS ORDERED: SODIUM PHOSPHATES IV NR ×19 (20:00)
[2023-02-01] MEDS ORDERED: FAT EMULSION IV NR ×19 (20:00)
[2023-02-01 22:00] VITALS: BP 141/82
[2023-02-02] MEDS: ACCU-CHEK COMFORT CURVE STRIP VI SCH ×5 (00:32→23:07)
[2023-02-02] MEDS: VANCOMYCIN 1GM/250ML 250 ML IV SCH ×2 (01:54→17:07)
[2023-02-02 05:00] VITALS: BP 143/93
[2023-02-02] MEDS: metroNIDAZOLE 500MG/100ML 100 ML IV SCH ×3 (05:22→21:03)
[2023-02-02] MEDS: InsuLIN REG 1unit/0.01ml Soln (100units/ml) SC SCH ×5 (05:22→23:14)
[2023-02-02 07:26] LABS: Calcium 8.3 mg/dL (8.5-10.1); Potassium 3.9 mmol/L (3.5-5.1)
[2023-02-02 07:28] LABS: BUN/Creatinine Ratio 17.1 (10.0-20.0)
[2023-02-02 07:43] LABS: Albumin 2.2 g/dL (3.4-5.0); Bilirubin, Total 0.2 mg/dL (0.2-1.0); Total Protein 7.5 g/dL (6.4-8.2)
[2023-02-02] MEDS: cefTRIAXone 1GM/50ML D5W 50 ML IV SCH (08:23)
[2023-02-02 08:36] VITALS: BP 113/80
[2023-02-02] MEDS: PANTOPRAZOLE 40 MG/10 ML VIAL INJ IV SCH (10:19)
[2023-02-02] MEDS: SODIUM CHLOR 0.9% PF (SALINE LOCK) 10ML VIAL/SYR IV SCH ×2 (10:19→20:58)
[2023-02-02] MEDS: hydrALAZINE HCL 20 MG/ML VL IV PRN (12:37)
[2023-02-02 12:42] VITALS: BP 159/84
[2023-02-02] MEDS: NITROGLYCERIN 0.4 MG SL TAB SL PRN ×2 (13:05→13:16)
[2023-02-02] MEDS: HYDROmorphone HCL 2 MG/ML VL/or syr IV PRN ×2 (14:39→23:07)
[2023-02-02 16:51] VITALS: BP 160/78
[2023-02-02] MEDS ORDERED: [UNRECOGNIZED DRUG - OTHER] IV NR ×10 (20:00)
[2023-02-02] MEDS ORDERED: FAT EMULSION IV NR ×10 (20:00)
[2023-02-02] MEDS ORDERED: POTASSIUM ACETATE IV NR ×10 (20:00)
[2023-02-02] MEDS ORDERED: SODIUM PHOSPHATES IV NR ×10 (20:00)
[2023-02-02 22:00] VITALS: BP 130/69
[2023-02-03 05:00] VITALS: BP 130/82
[2023-02-03] MEDS: metroNIDAZOLE 500MG/100ML 100 ML IV SCH ×3 (05:30→22:25)
[2023-02-03] MEDS: ACCU-CHEK COMFORT CURVE STRIP VI SCH ×4 (05:30→23:33)
[2023-02-03] MEDS: InsuLIN REG 1unit/0.01ml Soln (100units/ml) SC SCH ×3 (05:41→16:55)
[2023-02-03] MEDS: HYDROmorphone HCL 2 MG/ML VL/or syr IV PRN ×2 (05:55→16:59)
[2023-02-03 07:05] LABS: Basophils # (auto) 0 10 ^3/uL (0-0.2); Basophils % (auto) 0.4 % (0.0-2.0); Hemoglobin 9.9 g/dL (12.2-16.2); Lymphocytes # (auto) 1.8 10 ^3/uL (0.4-5.4); Monocytes # (auto) 0.8 10 ^3/uL (0-1.3); Nucleated Red Blood Cells % 0.1 %; Red Cell Distribution Width 16.4 % (11.8-14.3)
[2023-02-03 07:08] LABS: Eosinophils # (auto) 0.3 10 ^3/uL (0-0.8); Eosinophils % (auto) 4.2 % (0.0-7.0); Hematocrit 31.8 % (36.0-46.0); Lymphocytes % (auto) 29.8 % (10.0-50.0); Mean Corpuscular Hemoglobin 20.2 pg (28.0-32.0); Mean Corpuscular Hgb Conc. 31.1 g/dL (32.0-36.0); Monocytes % (auto) 13.1 % (0.0-12.0); Neutrophils # (auto) 3.2 10 ^3/uL (1.6-8.6); Neutrophils % (auto) 52.5 % (37.0-80.0); White Blood Cell 6.1 10^3/uL (4.4-10.8)
[2023-02-03 08:00] VITALS: BP 130/95
[2023-02-03 08:44] LABS: Albumin 2.1 g/dL (3.4-5.0); Anion Gap 5 (5-15); Blood Urea Nitrogen 13 mg/dL (7-18); Calcium 8.6 mg/dL (8.5-10.1); Carbon Dioxide 25 mmol/L (21-32); Chloride 110 mmol/L (98-107); Glucose 96 mg/dL (74-106); Magnesium 2.2 mg/dL (1.6-2.6); Potassium 3.9 mmol/L (3.5-5.1); Sodium 140 mmol/L (136-145)
[2023-02-03 08:47] LABS: Alanine Aminotransferase < 6 U/L (13-56); Alkaline Phosphatase 46 U/L (45-117); Aspartate Aminotransferase 9 U/L (15-37); BUN/Creatinine Ratio 16.9 (10.0-20.0); Bilirubin, Total 0.2 mg/dL (0.2-1.0); GFR African American 95 mL/min; GFR Non-African American 78 mL/min; Phosphorus 2.7 mg/dL (2.5-4.90); Total Protein 7.4 g/dL (6.4-8.2)
[2023-02-03] MEDS: VANCOMYCIN 1GM/250ML 250 ML IV SCH (08:50)
[2023-02-03] MEDS: PANTOPRAZOLE 40 MG/10 ML VIAL INJ IV SCH (08:51)
[2023-02-03] MEDS: SODIUM CHLOR 0.9% PF (SALINE LOCK) 10ML VIAL/SYR IV SCH ×2 (08:55→22:25)
[2023-02-03] MEDS: cefTRIAXone 1GM/50ML D5W 50 ML IV SCH (11:06)
[2023-02-03 12:00] VITALS: BP 135/90
[2023-02-03] MEDS ORDERED: ALBUTEROL SULF 2.5 MG/0.5ML(0.5%) NEB SOLN ONE (14:11)
[2023-02-03 16:00] VITALS: BP 124/93
[2023-02-03] MEDS ORDERED: TPN PER PHARMACY IV NR ×8 (20:00)
[2023-02-03 22:00] VITALS: BP 108/70
[2023-02-03] MEDS: CARVEDILOL 3.125 MG TAB PO SCH (22:00)
[2023-02-04] MEDS: InsuLIN REG 1unit/0.01ml Soln (100units/ml) SC SCH ×4 (00:06→18:31)
[2023-02-04 05:00] VITALS: BP 124/85
[2023-02-04] MEDS: metroNIDAZOLE 500MG/100ML 100 ML IV SCH ×3 (06:09→21:32)
[2023-02-04] MEDS: ACCU-CHEK COMFORT CURVE STRIP VI SCH ×3 (06:09→18:29)
[2023-02-04 06:16] LABS: Basophils # (auto) 0.1 10 ^3/uL (0-0.2); Eosinophils # (auto) 0.3 10 ^3/uL (0-0.8); Hemoglobin 10.1 g/dL (12.2-16.2); Monocytes # (auto) 0.8 10 ^3/uL (0-1.3)
[2023-02-04 06:19] LABS: Basophils % (auto) 0.8 % (0.0-2.0); Eosinophils % (auto) 4.2 % (0.0-7.0); Hematocrit 32.6 % (36.0-46.0); Lymphocytes # (auto) 2.2 10 ^3/uL (0.4-5.4); Lymphocytes % (auto) 35.2 % (10.0-50.0); Mean Corpuscular Hemoglobin 20.3 pg (28.0-32.0); Mean Corpuscular Volume 65.6 fL (80.0-100.0); Monocytes % (auto) 13.4 % (0.0-12.0); Neutrophils # (auto) 2.9 10 ^3/uL (1.6-8.6); Neutrophils % (auto) 46.4 % (37.0-80.0); Nucleated Red Blood Cells % 0.2 %; Red Blood Cells 4.97 10^6/uL (4.0-5.20); Red Cell Distribution Width 15.8 % (11.8-14.3); White Blood Cell 6.3 10^3/uL (4.4-10.8)
[2023-02-04 06:49] LABS: Alanine Aminotransferase < 6 U/L (13-56); Albumin 2.3 g/dL (3.4-5.0); Anion Gap 6 (5-15); Aspartate Aminotransferase 8 U/L (15-37); BUN/Creatinine Ratio 19.7 (10.0-20.0); Blood Urea Nitrogen 15 mg/dL (7-18); Calcium 8.4 mg/dL (8.5-10.1); Carbon Dioxide 27 mmol/L (21-32); Chloride 107 mmol/L (98-107); GFR African American 96 mL/min; GFR Non-African American 79 mL/min; Glucose 113 mg/dL (74-106); Magnesium 1.8 mg/dL (1.6-2.6); Potassium 3.8 mmol/L (3.5-5.1); Sodium 140 mmol/L (136-145)
[2023-02-04 06:53] LABS: Alkaline Phosphatase 49 U/L (45-117); Bilirubin, Total 0.3 mg/dL (0.2-1.0); Phosphorus 3.4 mg/dL (2.5-4.90); Total Protein 7.5 g/dL (6.4-8.2)
[2023-02-04 09:00] VITALS: BP 133/77
[2023-02-04] MEDS: CARVEDILOL 3.125 MG TAB PO SCH ×3 (10:00→21:36)
[2023-02-04] MEDS: amLODIPine BESYLATE 5 MG TAB PO SCH (10:00)
[2023-02-04] MEDS: ASPirin 81 mg TAB PO SCH (10:00)
[2023-02-04] MEDS: ATORVASTATIN 20 MG TAB PO SCH (10:00)
[2023-02-04] MEDS: SODIUM CHLOR 0.9% PF (SALINE LOCK) 10ML VIAL/SYR IV SCH ×2 (10:43→21:33)
[2023-02-04] MEDS: cefTRIAXone 1GM/50ML D5W 50 ML IV SCH (10:44)
[2023-02-04] MEDS: PANTOPRAZOLE 40 MG/10 ML VIAL INJ IV SCH (10:53)
[2023-02-04] MEDS: VANCOMYCIN 1GM/250ML 250 ML IV SCH (12:49)
[2023-02-04 13:15] VITALS: BP 133/88
[2023-02-04 17:00] VITALS: BP 139/83
[2023-02-04] MEDS: HYDROmorphone HCL 2 MG/ML VL/or syr IV PRN (17:20)
[2023-02-04] MEDS ORDERED: TPN PER PHARMACY IV NR ×9 (20:00)
[2023-02-04 22:00] VITALS: BP 126/92
[2023-02-04] MEDS ORDERED: ARTIFICIAL TEARS 15ml EACHEYE PRN (23:15)
[2023-02-05] MEDS: ACCU-CHEK COMFORT CURVE STRIP VI SCH ×5 (00:30→23:20)
[2023-02-05 05:00] VITALS: BP 121/85
[2023-02-05] MEDS: metroNIDAZOLE 500MG/100ML 100 ML IV SCH ×3 (05:31→21:32)
[2023-02-05] MEDS: InsuLIN REG 1unit/0.01ml Soln (100units/ml) SC SCH ×5 (05:31→23:21)
[2023-02-05 06:35] LABS: Albumin 2.1 g/dL (3.4-5.0); Calcium 8.1 mg/dL (8.5-10.1); Chloride 105 mmol/L (98-107); Potassium 3.9 mmol/L (3.5-5.1); Sodium 138 mmol/L (136-145)
[2023-02-05 06:37] LABS: Alanine Aminotransferase < 6 U/L (13-56); Anion Gap 5 (5-15); Aspartate Aminotransferase 8 U/L (15-37); BUN/Creatinine Ratio 22.4 (10.0-20.0); Blood Urea Nitrogen 17 mg/dL (7-18); Carbon Dioxide 28 mmol/L (21-32); GFR African American 96 mL/min; GFR Non-African American 79 mL/min; Glucose 108 mg/dL (74-106); Magnesium 1.9 mg/dL (1.6-2.6)
[2023-02-05 06:39] LABS: Alkaline Phosphatase 48 U/L (45-117); Bilirubin, Total 0.2 mg/dL (0.2-1.0); Phosphorus 2.9 mg/dL (2.5-4.90); Total Protein 7.4 g/dL (6.4-8.2)
[2023-02-05] MEDS: PANTOPRAZOLE 40 MG/10 ML VIAL INJ IV SCH (08:43)
[2023-02-05] MEDS: ATORVASTATIN 20 MG TAB PO SCH (08:43)
[2023-02-05] MEDS: ASPirin 81 mg TAB PO SCH (08:43)
[2023-02-05] MEDS: SODIUM CHLOR 0.9% PF (SALINE LOCK) 10ML VIAL/SYR IV SCH ×2 (08:51→21:36)
[2023-02-05] MEDS: cefTRIAXone 1GM/50ML D5W 50 ML IV SCH (08:57)
[2023-02-05 09:00] VITALS: BP 126/80
[2023-02-05] MEDS: amLODIPine BESYLATE 5 MG TAB PO SCH (10:00)
[2023-02-05] MEDS: CARVEDILOL 3.125 MG TAB PO SCH ×2 (10:00→21:52)
[2023-02-05] MEDS: VANCOMYCIN 1GM/250ML 250 ML IV SCH (10:45)
[2023-02-05] MEDS ORDERED: diphenhdrAMINE HCL 50 MG/1 ML VL IV ONE (12:00)
[2023-02-05 13:00] VITALS: BP 126/92
[2023-02-05] MEDS: HYDROmorphone HCL 2 MG/ML VL/or syr IV PRN ×2 (13:01→17:31)
[2023-02-05 17:00] VITALS: BP 124/85
[2023-02-05] MEDS: diphenhdrAMINE HCL 50 MG/1 ML VL IV PRN (17:30)
[2023-02-05] MEDS ORDERED: TPN PER PHARMACY IV NR ×11 (20:00)
[2023-02-05] MEDS: FLUTICASONE PROP NASAL SPR 0.05 % (50MCG) 16GM EACHNOSTRI SCH (21:38)
[2023-02-05 22:00] VITALS: BP 122/74
[2023-02-06 05:00] VITALS: BP 125/76
[2023-02-06] MEDS: metroNIDAZOLE 500MG/100ML 100 ML IV SCH ×3 (05:03→21:09)
[2023-02-06] MEDS: InsuLIN REG 1unit/0.01ml Soln (100units/ml) SC SCH ×3 (05:16→17:42)
[2023-02-06] MEDS: ACCU-CHEK COMFORT CURVE STRIP VI SCH ×3 (05:16→17:42)
[2023-02-06 06:23] LABS: Chloride 106 mmol/L (98-107); Potassium 4.2 mmol/L (3.5-5.1); Sodium 137 mmol/L (136-145)
[2023-02-06 06:43] LABS: Albumin 2.1 g/dL (3.4-5.0); Anion Gap 4 (5-15); BUN/Creatinine Ratio 22.6 (10.0-20.0); Blood Urea Nitrogen 19 mg/dL (7-18); Calcium 8.1 mg/dL (8.5-10.1); Carbon Dioxide 27 mmol/L (21-32); GFR African American 85 mL/min; GFR Non-African American 71 mL/min; Glucose 105 mg/dL (74-106); Magnesium 2.3 mg/dL (1.6-2.6)
[2023-02-06 06:46] LABS: Alanine Aminotransferase < 6 U/L (13-56); Alkaline Phosphatase 50 U/L (45-117); Aspartate Aminotransferase 9 U/L (15-37); Bilirubin, Total 0.2 mg/dL (0.2-1.0); Phosphorus 3.2 mg/dL (2.5-4.90); Total Protein 7.2 g/dL (6.4-8.2)
[2023-02-06] MEDS: CARVEDILOL 3.125 MG TAB PO SCH ×2 (10:00→21:29)
[2023-02-06] MEDS: FLUTICASONE PROP NASAL SPR 0.05 % (50MCG) 16GM EACHNOSTRI SCH ×2 (10:00→21:23)
[2023-02-06] MEDS: SODIUM CHLOR 0.9% PF (SALINE LOCK) 10ML VIAL/SYR IV SCH ×2 (10:00→21:09)
[2023-02-06] MEDS: amLODIPine BESYLATE 5 MG TAB PO SCH (10:00)
[2023-02-06] MEDS: cefTRIAXone 1GM/50ML D5W 50 ML IV SCH (10:08)
[2023-02-06 10:45] VITALS: BP 120/82
[2023-02-06] MEDS: ATORVASTATIN 20 MG TAB PO SCH (11:50)
[2023-02-06] MEDS: PANTOPRAZOLE 40 MG/10 ML VIAL INJ IV SCH (11:50)
[2023-02-06] MEDS: ASPirin 81 mg TAB PO SCH (11:50)
[2023-02-06] MEDS: VANCOMYCIN 1GM/250ML 250 ML IV SCH ×2 (11:51→11:53)
[2023-02-06] MEDS: HYDROmorphone HCL 2 MG/ML VL/or syr IV PRN ×2 (13:36→21:29)
[2023-02-06] MEDS: diphenhdrAMINE HCL 50 MG/1 ML VL IV PRN ×2 (14:15→21:28)
[2023-02-06 14:32] VITALS: BP 115/76
[2023-02-06 16:42] VITALS: BP 107/85
[2023-02-06] MEDS ORDERED: TPN PER PHARMACY IV NR ×11 (20:00)
[2023-02-06 22:00] VITALS: BP 115/61
[2023-02-07] MEDS: ACCU-CHEK COMFORT CURVE STRIP VI SCH ×4 (00:20→17:24)
[2023-02-07] MEDS: diphenhdrAMINE HCL 50 MG/1 ML VL IV PRN ×3 (03:14→20:52)
[2023-02-07 05:00] VITALS: BP 110/72
[2023-02-07] MEDS: metroNIDAZOLE 500MG/100ML 100 ML IV SCH ×3 (05:22→20:52)
[2023-02-07] MEDS: InsuLIN REG 1unit/0.01ml Soln (100units/ml) SC SCH ×4 (05:23→17:24)
[2023-02-07 05:48] LABS: Basophils # (auto) 0 10 ^3/uL (0-0.2); Basophils % (auto) 0.5 % (0.0-2.0); Eosinophils # (auto) 0.3 10 ^3/uL (0-0.8); Hemoglobin 9.4 g/dL (12.2-16.2); Nucleated Red Blood Cells % 0.1 %
[2023-02-07 05:51] LABS: Hematocrit 30.6 % (36.0-46.0); Lymphocytes # (auto) 2.1 10 ^3/uL (0.4-5.4); Lymphocytes % (auto) 24.7 % (10.0-50.0); Mean Corpuscular Hemoglobin 20.2 pg (28.0-32.0); Mean Corpuscular Hgb Conc. 30.8 g/dL (32.0-36.0); Mean Corpuscular Volume 65.5 fL (80.0-100.0); Monocytes # (auto) 0.9 10 ^3/uL (0-1.3); Monocytes % (auto) 11.2 % (0.0-12.0); Neutrophils % (auto) 59.6 % (37.0-80.0); Red Blood Cells 4.67 10^6/uL (4.0-5.20); Red Cell Distribution Width 16.4 % (11.8-14.3); White Blood Cell 8.5 10^3/uL (4.4-10.8)
[2023-02-07 05:54] LABS: Potassium 4.2 mmol/L (3.5-5.1)
[2023-02-07 05:58] LABS: BUN/Creatinine Ratio 24.1 (10.0-20.0); Magnesium 2.6 mg/dL (1.6-2.6); Phosphorus 3.4 mg/dL (2.5-4.90)
[2023-02-07] MEDS: FLUTICASONE PROP NASAL SPR 0.05 % (50MCG) 16GM EACHNOSTRI SCH ×2 (09:45→20:51)
[2023-02-07] MEDS: CARVEDILOL 3.125 MG TAB PO SCH ×2 (09:46→20:57)
[2023-02-07] MEDS: amLODIPine BESYLATE 5 MG TAB PO SCH (09:48)
[2023-02-07] MEDS: VANCOMYCIN 1GM/250ML 250 ML IV SCH (10:00)
[2023-02-07] MEDS: FLORASTOR (S. BOULARDII) 250 MG CAP PO SCH (10:01)
[2023-02-07] MEDS: cefTRIAXone 1GM/50ML D5W 50 ML IV SCH (10:01)
[2023-02-07] MEDS: ATORVASTATIN 20 MG TAB PO SCH (10:01)
[2023-02-07] MEDS: ASPirin 81 mg TAB PO SCH (10:01)
[2023-02-07] MEDS: PANTOPRAZOLE 40 MG/10 ML VIAL INJ IV SCH (10:02)
[2023-02-07] MEDS: HYDROmorphone HCL 2 MG/ML VL/or syr IV PRN (10:03)
[2023-02-07] MEDS: SODIUM CHLOR 0.9% PF (SALINE LOCK) 10ML VIAL/SYR IV SCH ×2 (10:04→20:58)
[2023-02-07 12:00] VITALS: BP 121/77
[2023-02-07 14:09] VITALS: BP 128/78
[2023-02-07 14:28] VITALS: BP 110/64
[2023-02-07 17:07] VITALS: BP 112/70
[2023-02-07] MEDS ORDERED: TPN PER PHARMACY IV NR ×10 (20:00)
[2023-02-07 21:58] VITALS: BP 162/85
[2023-02-08] MEDS: ACCU-CHEK COMFORT CURVE STRIP VI SCH ×4 (00:15→17:48)
[2023-02-08 05:00] VITALS: BP 156/79
[2023-02-08] MEDS: metroNIDAZOLE 500MG/100ML 100 ML IV SCH ×3 (05:58→21:00)
[2023-02-08] MEDS: InsuLIN REG 1unit/0.01ml Soln (100units/ml) SC SCH ×4 (05:58→18:03)
[2023-02-08 06:06] LABS: Basophils # (auto) 0 10 ^3/uL (0-0.2); Basophils % (auto) 0.6 % (0.0-2.0); Eosinophils # (auto) 0.4 10 ^3/uL (0-0.8); Hematocrit 31.3 % (36.0-46.0); Hemoglobin 9.6 g/dL (12.2-16.2); Lymphocytes # (auto) 2.2 10 ^3/uL (0.4-5.4); Lymphocytes % (auto) 27.1 % (10.0-50.0); Mean Corpuscular Hgb Conc. 30.5 g/dL (32.0-36.0); Mean Corpuscular Volume 65.3 fL (80.0-100.0); Monocytes # (auto) 0.8 10 ^3/uL (0-1.3); Monocytes % (auto) 9.5 % (0.0-12.0); Neutrophils # (auto) 4.7 10 ^3/uL (1.6-8.6); Neutrophils % (auto) 57.8 % (37.0-80.0); Red Blood Cells 4.79 10^6/uL (4.0-5.20); Red Cell Distribution Width 16.1 % (11.8-14.3); White Blood Cell 8.1 10^3/uL (4.4-10.8)
[2023-02-08 06:19] LABS: Potassium 4.4 mmol/L (3.5-5.1)
[2023-02-08 06:23] LABS: Albumin 2.1 g/dL (3.4-5.0); BUN/Creatinine Ratio 23.6 (10.0-20.0); Calcium 8.3 mg/dL (8.5-10.1); Magnesium 2.6 mg/dL (1.6-2.6); Phosphorus 3.2 mg/dL (2.5-4.90)
[2023-02-08 09:00] VITALS: BP 153/91
[2023-02-08] MEDS: FLUTICASONE PROP NASAL SPR 0.05 % (50MCG) 16GM EACHNOSTRI SCH ×2 (10:00→21:12)
[2023-02-08] MEDS: CARVEDILOL 3.125 MG TAB PO SCH ×3 (10:00→21:54)
[2023-02-08] MEDS: amLODIPine BESYLATE 5 MG TAB PO SCH (10:00)
[2023-02-08] MEDS: ATORVASTATIN 20 MG TAB PO SCH (10:43)
[2023-02-08] MEDS: FLORASTOR (S. BOULARDII) 250 MG CAP PO SCH (10:43)
[2023-02-08] MEDS: ASPirin 81 mg TAB PO SCH (10:43)
[2023-02-08] MEDS: PANTOPRAZOLE 40 MG/10 ML VIAL INJ IV SCH (10:43)
[2023-02-08] MEDS: VANCOMYCIN 1GM/250ML 250 ML IV SCH (10:45)
[2023-02-08] MEDS: SODIUM CHLOR 0.9% PF (SALINE LOCK) 10ML VIAL/SYR IV SCH ×2 (10:45→21:01)
[2023-02-08] MEDS: cefTRIAXone 1GM/50ML D5W 50 ML IV SCH (10:46)
[2023-02-08 13:00] VITALS: BP 158/90
[2023-02-08] MEDS: diphenhdrAMINE HCL 50 MG/1 ML VL IV PRN ×2 (13:11→21:03)
[2023-02-08] MEDS ORDERED: HYDROcodone-ACET 7.5/325MG TAB PO PRN (13:30)
[2023-02-08 17:00] VITALS: BP 155/76
[2023-02-08] MEDS ORDERED: TPN PER PHARMACY IV NR ×9 (20:00)
[2023-02-08 22:00] VITALS: BP 177/69
[2023-02-09 05:00] VITALS: BP 106/78
[2023-02-09] MEDS: metroNIDAZOLE 500MG/100ML 100 ML IV SCH ×3 (05:11→21:31)
[2023-02-09] MEDS: InsuLIN REG 1unit/0.01ml Soln (100units/ml) SC SCH ×5 (06:00→23:42)
[2023-02-09] MEDS: ACCU-CHEK COMFORT CURVE STRIP VI SCH ×5 (06:28→23:42)
[2023-02-09 06:35] LABS: Albumin 2.1 g/dL (3.4-5.0); Calcium 7.9 mg/dL (8.5-10.1); Magnesium 2.2 mg/dL (1.6-2.6); Potassium 4.2 mmol/L (3.5-5.1)
[2023-02-09 06:39] LABS: BUN/Creatinine Ratio 27.5 (10.0-20.0); Bilirubin, Total 0.1 mg/dL (0.2-1.0); Phosphorus 3.4 mg/dL (2.5-4.90); Total Protein 7.2 g/dL (6.4-8.2)
[2023-02-09] MEDS: cefTRIAXone 1GM/50ML D5W 50 ML IV SCH (08:41)
[2023-02-09 09:00] VITALS: BP 126/77
[2023-02-09] MEDS: PANTOPRAZOLE 40 MG/10 ML VIAL INJ IV SCH (09:30)
[2023-02-09] MEDS: SODIUM CHLOR 0.9% PF (SALINE LOCK) 10ML VIAL/SYR IV SCH ×2 (09:31→21:34)
[2023-02-09] MEDS: VANCOMYCIN 1GM/250ML 250 ML IV SCH (09:31)
[2023-02-09] MEDS: ASPirin 81 mg TAB PO SCH (09:31)
[2023-02-09] MEDS: FLORASTOR (S. BOULARDII) 250 MG CAP PO SCH (09:32)
[2023-02-09] MEDS: amLODIPine BESYLATE 5 MG TAB PO SCH (09:41)
[2023-02-09] MEDS: ATORVASTATIN 20 MG TAB PO SCH (09:41)
[2023-02-09] MEDS: CARVEDILOL 3.125 MG TAB PO SCH ×3 (09:41→21:38)
[2023-02-09] MEDS: diphenhdrAMINE HCL 50 MG/1 ML VL IV PRN (09:48)
[2023-02-09] MEDS: FLUTICASONE PROP NASAL SPR 0.05 % (50MCG) 16GM EACHNOSTRI SCH ×3 (10:00→21:38)
[2023-02-09] MEDS ORDERED: OMNIPAQUE 12mg/ml 500ml ORAL SOLUTION PO ONE (12:40)
[2023-02-09] MEDS ORDERED: IOHEXOL 300 MG/ML 100ML BOTTLE IJ ONE (12:40)
[2023-02-09 13:00] VITALS: BP 111/72
[2023-02-09 17:00] VITALS: BP 123/87
[2023-02-09] MEDS ORDERED: TPN PER PHARMACY IV NR ×10 (20:00)
[2023-02-09 22:00] VITALS: BP 120/83
[2023-02-10 05:00] VITALS: BP 129/85
[2023-02-10] MEDS: InsuLIN REG 1unit/0.01ml Soln (100units/ml) SC SCH ×3 (05:33→18:00)
[2023-02-10] MEDS: ACCU-CHEK COMFORT CURVE STRIP VI SCH ×3 (05:33→18:15)
[2023-02-10] MEDS: metroNIDAZOLE 500MG/100ML 100 ML IV SCH ×3 (05:38→21:46)
[2023-02-10 05:53] LABS: Basophils # (auto) 0.1 10 ^3/uL (0-0.2); Basophils % (auto) 0.9 % (0.0-2.0); Eosinophils # (auto) 0.4 10 ^3/uL (0-0.8); Eosinophils % (auto) 5.2 % (0.0-7.0); Hematocrit 31.7 % (36.0-46.0); Hemoglobin 9.5 g/dL (12.2-16.2); Lymphocytes # (auto) 2.4 10 ^3/uL (0.4-5.4); Lymphocytes % (auto) 32.9 % (10.0-50.0); Mean Corpuscular Hemoglobin 20.2 pg (28.0-32.0); Mean Corpuscular Volume 67.4 fL (80.0-100.0); Monocytes # (auto) 0.7 10 ^3/uL (0-1.3); Monocytes % (auto) 9.2 % (0.0-12.0); Neutrophils # (auto) 3.8 10 ^3/uL (1.6-8.6); Neutrophils % (auto) 51.8 % (37.0-80.0); Nucleated Red Blood Cells % 0.2 %; Red Cell Distribution Width 16.8 % (11.8-14.3); White Blood Cell 7.3 10^3/uL (4.4-10.8)
[2023-02-10 06:29] LABS: Potassium 4.7 mmol/L (3.5-5.1)
[2023-02-10 06:38] LABS: Albumin 2.2 g/dL (3.4-5.0); BUN/Creatinine Ratio 29.6 (10.0-20.0); Bilirubin, Total 0.2 mg/dL (0.2-1.0); Calcium 7.8 mg/dL (8.5-10.1); Magnesium 2.3 mg/dL (1.6-2.6); Phosphorus 3.1 mg/dL (2.5-4.90); Total Protein 6.8 g/dL (6.4-8.2)
[2023-02-10 09:00] VITALS: BP 112/76
[2023-02-10] MEDS: cefTRIAXone 1GM/50ML D5W 50 ML IV SCH (09:10)
[2023-02-10] MEDS: FLUTICASONE PROP NASAL SPR 0.05 % (50MCG) 16GM EACHNOSTRI SCH ×2 (09:11→21:51)
[2023-02-10] MEDS: PANTOPRAZOLE 40 MG/10 ML VIAL INJ IV SCH (09:11)
[2023-02-10] MEDS: SODIUM CHLOR 0.9% PF (SALINE LOCK) 10ML VIAL/SYR IV SCH ×2 (09:12→21:51)
[2023-02-10] MEDS: CARVEDILOL 3.125 MG TAB PO SCH ×2 (09:15→21:52)
[2023-02-10] MEDS: ASPirin 81 mg TAB PO SCH (09:16)
[2023-02-10] MEDS: ATORVASTATIN 20 MG TAB PO SCH (09:17)
[2023-02-10] MEDS: FLORASTOR (S. BOULARDII) 250 MG CAP PO SCH (09:18)
[2023-02-10] MEDS: VANCOMYCIN 1GM/250ML 250 ML IV SCH (09:19)
[2023-02-10] MEDS: amLODIPine BESYLATE 5 MG TAB PO SCH (09:20)
[2023-02-10] MEDS: diphenhdrAMINE HCL 50 MG/1 ML VL IV PRN ×2 (09:36→21:46)
[2023-02-10 12:38] VITALS: BP 113/78
[2023-02-10 17:00] VITALS: BP 122/77
[2023-02-10] MEDS ORDERED: SODIUM PHOSPHATES IV NR ×11 (20:00)
[2023-02-10] MEDS ORDERED: POTASSIUM PHOSPHATE IV NR ×11 (20:00)
[2023-02-10] MEDS ORDERED: FAT EMULSION IV NR ×11 (20:00)
[2023-02-10] MEDS ORDERED: [UNRECOGNIZED DRUG - OTHER] IV NR ×11 (20:00)
[2023-02-10 22:00] VITALS: BP 116/93
[2023-02-11 04:59] VITALS: BP 108/71
[2023-02-11] MEDS: metroNIDAZOLE 500MG/100ML 100 ML IV SCH ×3 (05:23→23:50)
[2023-02-11 09:00] VITALS: BP 107/67
[2023-02-11] MEDS: PANTOPRAZOLE 40 MG/10 ML VIAL INJ IV SCH (09:51)
[2023-02-11] MEDS: ASPirin 81 mg TAB PO SCH (09:51)
[2023-02-11] MEDS: FLUTICASONE PROP NASAL SPR 0.05 % (50MCG) 16GM EACHNOSTRI SCH ×2 (09:52→22:00)
[2023-02-11] MEDS: VANCOMYCIN 1GM/250ML 250 ML IV SCH (09:52)
[2023-02-11] MEDS: SODIUM CHLOR 0.9% PF (SALINE LOCK) 10ML VIAL/SYR IV SCH (09:53)
[2023-02-11] MEDS: FLORASTOR (S. BOULARDII) 250 MG CAP PO SCH ×2 (10:00→11:25)
[2023-02-11] MEDS ORDERED: LEVO500T91 PO (10:45)
[2023-02-11] MEDS ORDERED: METR-344 PO (10:45)
[2023-02-11] MEDS ORDERED: SACC250C PO (10:45)
[2023-02-11] MEDS: amLODIPine BESYLATE 5 MG TAB PO SCH (11:20)
[2023-02-11] MEDS: ATORVASTATIN 20 MG TAB PO SCH (11:21)
[2023-02-11] MEDS: CARVEDILOL 3.125 MG TAB PO SCH ×2 (11:24→22:00)
[2023-02-11 13:00] VITALS: BP 120/74
[2023-02-11 17:00] VITALS: BP 122/73
[2023-02-11] MEDS: diphenhdrAMINE HCL 50 MG/1 ML VL IV PRN (20:41)
[2023-02-11 22:00] VITALS: BP 107/64
[2023-02-12] MEDS: SODIUM CHLOR 0.9% PF (SALINE LOCK) 10ML VIAL/SYR IV SCH ×3 (00:31→22:00)
[2023-02-12 05:00] VITALS: BP 121/80
[2023-02-12] MEDS: metroNIDAZOLE 500MG/100ML 100 ML IV SCH ×3 (05:37→22:20)
[2023-02-12 09:00] VITALS: BP 117/57
[2023-02-12] MEDS: FLORASTOR (S. BOULARDII) 250 MG CAP PO SCH ×2 (10:00→10:32)
[2023-02-12] MEDS: FLUTICASONE PROP NASAL SPR 0.05 % (50MCG) 16GM EACHNOSTRI SCH ×2 (10:00→22:00)
[2023-02-12] MEDS: VANCOMYCIN 1GM/250ML 250 ML IV SCH (10:26)
[2023-02-12] MEDS: ASPirin 81 mg TAB PO SCH (10:28)
[2023-02-12] MEDS: ATORVASTATIN 20 MG TAB PO SCH (10:29)
[2023-02-12] MEDS: PANTOPRAZOLE 40 MG/10 ML VIAL INJ IV SCH (10:29)
[2023-02-12] MEDS: CARVEDILOL 3.125 MG TAB PO SCH ×2 (10:30→22:00)
[2023-02-12] MEDS: amLODIPine BESYLATE 5 MG TAB PO SCH (10:30)
[2023-02-12 13:00] VITALS: BP 110/64
[2023-02-12 14:23] VITALS: BP 117/57
[2023-02-12 17:07] VITALS: BP 120/71
[2023-02-12] MEDS: diphenhdrAMINE HCL 50 MG/1 ML VL IV PRN (17:55)
[2023-02-12 22:00] VITALS: BP 134/75
[2023-02-13] MEDS: metroNIDAZOLE 500MG/100ML 100 ML IV SCH ×2 (06:03→14:00)
[2023-02-13] MEDS: VANCOMYCIN 1GM/250ML 250 ML IV SCH (10:00)
[2023-02-13] MEDS: FLUTICASONE PROP NASAL SPR 0.05 % (50MCG) 16GM EACHNOSTRI SCH (10:00)
[2023-02-13] MEDS: PANTOPRAZOLE 40 MG/10 ML VIAL INJ IV SCH (10:00)
[2023-02-13] MEDS: SODIUM CHLOR 0.9% PF (SALINE LOCK) 10ML VIAL/SYR IV SCH (10:00)
[2023-02-13] MEDS: FLORASTOR (S. BOULARDII) 250 MG CAP PO SCH ×2 (10:00)
[2023-02-13] MEDS: ASPirin 81 mg TAB PO SCH (10:00)
[2023-02-13] MEDS: ATORVASTATIN 20 MG TAB PO SCH (10:00)
[2023-02-13] MEDS: amLODIPine BESYLATE 5 MG TAB PO SCH (10:00)
[2023-02-13] MEDS: CARVEDILOL 3.125 MG TAB PO SCH (10:00)
== END 2023-02-13 19:10 | disposition home health service (06) | DRG 391 ==
LOC: ER 15:58 → EDBD 15:58 → TELE 18:28 → DOU IN ICU 21:20 → EAST 01-30 15:38 → TELE-EAST 01-30 15:54
PROVIDERS: ADMIT Nurse Practitioner Family; ATTEND Internal Medicine
PROC: 02HV33Z Insertion of Infusion Device into Superior Vena Cava, Percutaneous Approach (ICD-10-PCS; principal; 2023-01-30)
PROC: B548ZZA Ultrasonography of Superior Vena Cava, Guidance (ICD-10-PCS; 2023-01-30)
DX: K57.20 Diverticulitis of large intestine with perforation and abscess without bleeding (principal); E43 Unspecified severe protein-calorie malnutrition; I50.43 Acute on chronic combined systolic (congestive) and diastolic (congestive) heart failure; N17.0 Acute kidney failure with tubular necrosis; G82.20 Paraplegia, unspecified; Z68.42 Body mass index [BMI] 45.0-49.9, adult; K21.9 Gastro-esophageal reflux disease without esophagitis; F17.210 Nicotine dependence, cigarettes, uncomplicated; E66.01 Morbid (severe) obesity due to excess calories; I11.0 Hypertensive heart disease with heart failure; K43.9 Ventral hernia without obstruction or gangrene; Z88.8 Allergy status to other drugs, medicaments and biological substances; Z74.01 Bed confinement status; Z82.49 Family history of ischemic heart disease and other diseases of the circulatory system; Z83.3 Family history of diabetes mellitus
CPT/HCPCS: 36415; 36569; 71045; 73560; 73590; 74176; 74177; 80048; 80053; 80061; 80069; 80202; 81001; 82378; 82962; 83036; 83605; 83690; 83735; 83880; 84100; 84439; 84443; 84478; 84481; 84484; 85025; 85610; 85730; 87040; 87077; 87081; 87186; 93005; 93306; C9113; G0378; J0696; J1815; J1956; J2405; J3480; J3490; Q0162

== ENCOUNTER 2024-03-05 17:15 | Inpatient (IN) | payer MEDICARE, MEDICAID ==
[~2024-03-05] VITALS: Ht 177.8 cm; Wt 132.8 kg
[2024-03-05] MEDS: cefTRIAXone 1GM/50ML D5W 50 ML IV ONE (00:15)
[~2024-03-05 17:15] MED LIST changes: -CAR3125T OR; +CARV-214 OR; -DEXA6TAB6 PO; +METR-344 PO; +SACC250C PO
[2024-03-05 17:53] LABS: Basophils # (auto) 0 10 ^3/uL (0-0.2); Eosinophils # (auto) 0.3 10 ^3/uL (0-0.8); Hemoglobin 10.2 g/dL (12.2-16.2); Lymphocytes % (auto) 23.3 % (10.0-50.0); Neutrophils % (auto) 64.4 % (37.0-80.0); Nucleated Red Blood Cells % 0.1 %
[2024-03-05 17:55] LABS: Basophils % (auto) 0.4 % (0.0-2.0); Eosinophils % (auto) 3.6 % (0.0-7.0); Hematocrit 32.4 % (36.0-46.0); Lymphocytes # (auto) 2.1 10 ^3/uL (0.4-5.4); Mean Corpuscular Hemoglobin 20.1 pg (28.0-32.0); Mean Corpuscular Hgb Conc. 31.6 g/dL (32.0-36.0); Mean Corpuscular Volume 63.6 fL (80.0-100.0); Monocytes # (auto) 0.7 10 ^3/uL (0-1.3); Monocytes % (auto) 8.3 % (0.0-12.0); Neutrophils # (auto) 5.8 10 ^3/uL (1.6-8.6); Red Cell Distribution Width 17.4 % (11.8-14.3)
[2024-03-05 18:06] LABS: Albumin 3.3 g/dL (3.2-4.8); Alkaline Phosphatase 96 U/L (46-116); Anion Gap 7 (5-15); Aspartate Aminotransferase 14 U/L (13-40); BUN/Creatinine Ratio 9.6 (10.0-20.0); Bilirubin, Total 0.3 mg/dL (0.2-1.0); Blood Urea Nitrogen 11 mg/dL (9-23); Carbon Dioxide 27 mmol/L (20-30); Chloride 107 mmol/L (98-107); Glucose 115 mg/dL (74-106); Potassium 4.4 mmol/L (3.5-5.1); Sodium 141 mmol/L (136-145); Total Protein 7.3 g/dL (5.7-8.2)
[2024-03-05 18:15] LABS: CRP High Sensitivity 11.71 mg/dL (<1.0)
[2024-03-05 18:16] LABS: Alanine Aminotransferase < 9 U/L (7-40)
[2024-03-05 18:26] LABS: Lipase 19 U/L (12-53)
[2024-03-05] MEDS: ONDANSETRON HCL 4 MG/2 ML VIAL IV ONE ×2 (18:41→23:08)
[2024-03-05] MEDS: HYDROmorphone HCL 2 MG/ML VL/or syr IV ONE ×2 (18:41→23:07)
[2024-03-05 18:49] VITALS: PULSE 89; RESP 16; O2SAT 94
[2024-03-05] MEDS: metroNIDAZOLE 500MG/100ML 100 ML IV ONE (23:08)
[2024-03-05] MEDS ORDERED: MORPHINE SULFATE INJ 2 MG/ml SYRG IV PRN (23:30)
[2024-03-05] MEDS ORDERED: HYDROcodone-ACET 5/325MG TAB PO PRN (23:30)
[2024-03-05] MEDS ORDERED: HYDROmorphone HCL 2 MG/ML VL/or syr IV PRN (23:30)
[2024-03-05] MEDS ORDERED: ACETAMINOPHEN 325 MG TAB PO PRN (23:30)
[2024-03-05] MEDS ORDERED: NITROGLYCERIN 0.4 MG SL TAB SL PRN (23:30)
[2024-03-06] MEDS: SODIUM CHLORIDE 0.9% 1,000 ML IV SCH (00:24)
[2024-03-06] MEDS: PANTOPRAZOLE 40 MG/10 ML VIAL INJ IV ONE (00:25)
[2024-03-06] MEDS: metroNIDAZOLE 500MG/100ML 100 ML IV SCH ×2 (05:55→16:52)
[2024-03-06 06:11] LABS: Basophils # (auto) 0 10 ^3/uL (0-0.2); Hemoglobin 9.3 g/dL (12.2-16.2); Lymphocytes # (auto) 2.7 10 ^3/uL (0.4-5.4); Nucleated Red Blood Cells % 0.1 %; White Blood Cell 9.1 10^3/uL (4.4-10.8)
[2024-03-06 06:16] LABS: Basophils % (auto) 0.3 % (0.0-2.0); Eosinophils # (auto) 0.3 10 ^3/uL (0-0.8); Eosinophils % (auto) 3.7 % (0.0-7.0); Hematocrit 29.6 % (36.0-46.0); Lymphocytes % (auto) 29.2 % (10.0-50.0); Mean Corpuscular Hemoglobin 20.2 pg (28.0-32.0); Mean Corpuscular Hgb Conc. 31.4 g/dL (32.0-36.0); Mean Corpuscular Volume 64.3 fL (80.0-100.0); Monocytes # (auto) 1.1 10 ^3/uL (0-1.3); Monocytes % (auto) 11.8 % (0.0-12.0); Red Cell Distribution Width 17.1 % (11.8-14.3)
[2024-03-06 06:45] LABS: Albumin 3.1 g/dL (3.2-4.8); Alkaline Phosphatase 82 U/L (46-116); Anion Gap 5 (5-15); Aspartate Aminotransferase < 8 U/L (13-40); Bilirubin, Total 0.2 mg/dL (0.2-1.0); Blood Urea Nitrogen 18 mg/dL (9-23); Calcium 8.9 mg/dL (8.7-10.4); Carbon Dioxide 27 mmol/L (20-30); Chloride 108 mmol/L (98-107); Glucose 99 mg/dL (74-106); Potassium 4.7 mmol/L (3.5-5.1); Sodium 140 mmol/L (136-145); Total Protein 7.5 g/dL (5.7-8.2)
[2024-03-06 06:48] LABS: Alanine Aminotransferase < 9 U/L (7-40)
[2024-03-06 07:11] LABS: BUN/Creatinine Ratio 11.3 (10.0-20.0)
[2024-03-06] MEDS: MORPHINE SULFATE INJ 2 MG/ml SYRG IV PRN (07:44)
[2024-03-06] MEDS: ONDANSETRON HCL 4 MG/2 ML VIAL IV PRN (08:07)
[2024-03-06] MEDS: PANTOPRAZOLE 40 MG/10 ML VIAL INJ IV SCH (12:04)
[2024-03-06 16:46] VITALS: BP 154/51; PULSE 73; RESP 16; TEMP 97.8; O2SAT 95
[2024-03-06] MEDS ORDERED: CLINIMIX PER PHARMACY 0 ML IV SCH (17:45)
[2024-03-06] MEDS ORDERED: DEXTROSE (50%) 50ML SYRG IV SCH (18:00)
[2024-03-06] MEDS: ACCU-CHEK COMFORT CURVE STRIP VI SCH (19:05)
[2024-03-06] MEDS: InsuLIN REG 1unit/0.01ml Soln (100units/ml) SC SCH (19:05)
[2024-03-06 21:00] VITALS: BP 149/65; PULSE 75; RESP 18; TEMP 98.2; O2SAT 91
[2024-03-06] MEDS: AMINO ACID INFUSION IN D10W 1,000 ML IV SCH (23:00)
[2024-03-06] MEDS: CARVEDILOL 3.125 MG TAB PO SCH (23:09)
[2024-03-06] MEDS: NIFEdipine ER 30 MG TAB PO SCH (23:11)
[2024-03-06] MEDS: ATORVASTATIN 20 MG TAB PO SCH (23:12)
[2024-03-06] MEDS: TICAGRELOR 90 MG TAB PO SCH (23:13)
[2024-03-06] MEDS: cefTRIAXone 1GM/50ML D5W 50 ML IV SCH (23:17)
[2024-03-07 05:00] VITALS: BP 147/87; PULSE 93; RESP 16; TEMP 98.2; O2SAT 98
[2024-03-07 06:24] LABS: Chloride 108 mmol/L (98-107); Potassium 4.1 mmol/L (3.5-5.1); Sodium 141 mmol/L (136-145)
[2024-03-07 06:30] LABS: Basophils # (auto) 0 10 ^3/uL (0-0.2); Basophils % (auto) 0.4 % (0.0-2.0); Eosinophils # (auto) 0.4 10 ^3/uL (0-0.8); Hematocrit 27.8 % (36.0-46.0); Lymphocytes # (auto) 1.8 10 ^3/uL (0.4-5.4); Lymphocytes % (auto) 26.3 % (10.0-50.0); Monocytes # (auto) 0.8 10 ^3/uL (0-1.3)
[2024-03-07 06:34] LABS: Eosinophils % (auto) 5.5 % (0.0-7.0); Hemoglobin 8.6 g/dL (12.2-16.2); Mean Corpuscular Hemoglobin 20.2 pg (28.0-32.0); Mean Corpuscular Hgb Conc. 30.9 g/dL (32.0-36.0); Mean Corpuscular Volume 65.3 fL (80.0-100.0); Monocytes % (auto) 10.7 % (0.0-12.0); Neutrophils % (auto) 57.1 % (37.0-80.0); Nucleated Red Blood Cells % 0.1 %; Red Blood Cells 4.25 10^6/uL (4.0-5.20); Red Cell Distribution Width 17.1 % (11.8-14.3)
[2024-03-07 06:55] LABS: Anion Gap 9 (5-15); Calcium 8.7 mg/dL (8.7-10.4); Carbon Dioxide 24 mmol/L (20-30)
[2024-03-07 07:00] LABS: Alkaline Phosphatase 74 U/L (46-116); BUN/Creatinine Ratio 10.7 (10.0-20.0); Blood Urea Nitrogen 17 mg/dL (9-23); Glucose 97 mg/dL (74-106)
[2024-03-07 07:02] LABS: Albumin 2.9 g/dL (3.2-4.8); Aspartate Aminotransferase 11 U/L (13-40); Bilirubin, Total 0.2 mg/dL (0.2-1.0); Phosphorus 3.8 mg/dL (2.4-5.1)
[2024-03-07 07:03] LABS: Alanine Aminotransferase < 9 U/L (7-40)
[2024-03-07 08:10] VITALS: PULSE 64; RESP 20
[2024-03-07 08:30] VITALS: BP 168/90; PULSE 64; RESP 20; TEMP 98; O2SAT 93
[2024-03-07] MEDS: PANTOPRAZOLE 40 MG/10 ML VIAL INJ IV SCH (10:12)
[2024-03-07 11:45] LABS: Basophils # (auto) 0 10 ^3/uL (0-0.2); Basophils % (auto) 0.4 % (0.0-2.0); Eosinophils # (auto) 0.4 10 ^3/uL (0-0.8); Monocytes # (auto) 0.8 10 ^3/uL (0-1.3); Neutrophils # (auto) 4.7 10 ^3/uL (1.6-8.6); Nucleated Red Blood Cells % 0.1 %; Red Cell Distribution Width 17.3 % (11.8-14.3)
[2024-03-07 11:47] LABS: Eosinophils % (auto) 5.3 % (0.0-7.0); Hematocrit 29.4 % (36.0-46.0); Lymphocytes # (auto) 1.9 10 ^3/uL (0.4-5.4); Lymphocytes % (auto) 23.9 % (10.0-50.0); Mean Corpuscular Hemoglobin 19.9 pg (28.0-32.0); Mean Corpuscular Hgb Conc. 30.6 g/dL (32.0-36.0); Monocytes % (auto) 10.3 % (0.0-12.0); Neutrophils % (auto) 60.1 % (37.0-80.0); Red Blood Cells 4.52 10^6/uL (4.0-5.20); White Blood Cell 7.8 10^3/uL (4.4-10.8)
[2024-03-07 12:15] VITALS: BP 157/93; PULSE 73; RESP 20; TEMP 98.1; O2SAT 99
[2024-03-07 16:10] VITALS: BP 172/72; PULSE 82; RESP 20; TEMP 98; O2SAT 96
[2024-03-07 20:53] VITALS: BP 133/94; PULSE 56; RESP 18; TEMP 98.2; O2SAT 93
[2024-03-07 22:21] LABS: Urine Bacteria FEW /hpf (None Seen); Urine Blood 2+ /uL (Negative); Urine Clarity Turbid (Clear); Urine Color Yellow (Yellow); Urine Mucus FEW (None Seen); Urine Protein, UAD 1+ (Negative); Urine Specific Gravity 1.017 (1.001-1.035); Urine Urobilinogen Normal (Negative); Urine WBC 31 /hpf (0 - 5); Urine pH 5.5 (5.0-9.0)
[2024-03-07 22:35] LABS: Protein, Urine 74.9 mg/dL (0.0-11.9)
[2024-03-07 22:38] LABS: Creatinine, Urine 97.55 mg/dL (30.0-125.0); Urine Protein/Creatinine Ratio 0.77
[2024-03-08 00:39] VITALS: BP 135/63; PULSE 71; RESP 20; TEMP 98.1; O2SAT 98
[2024-03-08 05:00] VITALS: BP 152/65; PULSE 65; RESP 20; TEMP 97.4; O2SAT 97
[2024-03-08 05:16] LABS: Hemoglobin 8.6 g/dL (12.2-16.2); White Blood Cell 11.9 10^3/uL (4.4-10.8)
[2024-03-08 05:22] LABS: Hematocrit 28.2 % (36.0-46.0); Mean Corpuscular Hgb Conc. 30.5 g/dL (32.0-36.0); Mean Corpuscular Volume 65.5 fL (80.0-100.0); Red Cell Distribution Width 17.6 % (11.8-14.3)
[2024-03-08 05:38] LABS: Band Neutrophils % (manual) 0; Basophils % (manual) 0 (0.0-2.0); Blast Cells 0; Eosinophils % (manual) 0 (0-7); Metamyelocytes % 0; Myelocytes % 0; Promyelocytes % 0; Reactive Lymphocytes 0
[2024-03-08 05:47] LABS: Alkaline Phosphatase 71 U/L (46-116); Anion Gap 6 (5-15); Aspartate Aminotransferase < 8 U/L (13-40); BUN/Creatinine Ratio 10.8 (10.0-20.0); Bilirubin, Total 0.2 mg/dL (0.2-1.0); Blood Urea Nitrogen 15 mg/dL (9-23); Carbon Dioxide 26 mmol/L (20-30); Chloride 107 mmol/L (98-107); Glucose 131 mg/dL (74-106); Phosphorus 2.8 mg/dL (2.4-5.1); Potassium 3.6 mmol/L (3.5-5.1); Sodium 139 mmol/L (136-145); Total Protein 6.9 g/dL (5.7-8.2)
[2024-03-08 05:48] LABS: Alanine Aminotransferase < 9 U/L (7-40)
[2024-03-08 07:26] LABS: Lymphocytes % (manual) 25 (10.0-50.0); Monocytes % (manual) 8 (0-12); Platelet Estimate Increased; Smudge Cells 2 /100 WBC
[2024-03-08 07:28] LABS: Hypochromia Moderate
[2024-03-08 07:30] LABS: Ovalocytes FEW; Stomatocytes Few
[2024-03-08 08:42] VITALS: BP 110/73; PULSE 73; RESP 14; TEMP 98.3; O2SAT 95
[2024-03-08] MEDS: ASPirin 81 mg TAB PO SCH (10:36)
[2024-03-08] MEDS: DOCUSATE SOD 100 MG CAP PO PRN (10:37)
[2024-03-08] MEDS: POLYETHYLENE GLYCOL 17 GM PWDR PO PRN (10:41)
[2024-03-08 17:00] VITALS: BP 153/100; PULSE 72; RESP 14; TEMP 97.6; O2SAT 95
[2024-03-08 20:40] VITALS: BP 134/64; PULSE 71; RESP 20; TEMP 98.6; O2SAT 98
[2024-03-09] VITALS (7 sets, daily range): BP systolic 129–151; BP diastolic 62–79; PULSE 58–69; RESP 17–20; TEMP 97.9–98.4; O2SAT 97–100
[2024-03-09 06:15] LABS: Albumin 3.1 g/dL (3.2-4.8); Alkaline Phosphatase 70 U/L (46-116); Anion Gap 8 (5-15); Aspartate Aminotransferase < 8 U/L (13-40); BUN/Creatinine Ratio 10.1 (10.0-20.0); Blood Urea Nitrogen 12 mg/dL (9-23); Carbon Dioxide 24 mmol/L (20-30); Chloride 106 mmol/L (98-107); Glucose 104 mg/dL (74-106); Magnesium 1.8 mg/dL (1.6-2.6); Phosphorus 2.6 mg/dL (2.4-5.1); Potassium 3.3 mmol/L (3.5-5.1); Sodium 138 mmol/L (136-145)
[2024-03-09 06:16] LABS: Bilirubin, Total 0.2 mg/dL (0.2-1.0); Total Protein 7.2 g/dL (5.7-8.2)
[2024-03-09 06:28] LABS: Alanine Aminotransferase < 9 U/L (7-40)
[2024-03-09] MEDS: POTASSIUM EFFERVESENT TAB 25 MEQ PO ONE (08:25)
[2024-03-09] MEDS ORDERED: POTASSIUM PHOSPHATE 22 MEQ in SODIUM CHL 0.9% 100 ML IV ONE (12:45)
[2024-03-10 05:18] VITALS: BP 127/69; PULSE 58; RESP 16; TEMP 98.3; O2SAT 100
[2024-03-10 07:05] LABS: Potassium 3.6 mmol/L (3.5-5.1)
[2024-03-10 07:06] LABS: Calcium 8.8 mg/dL (8.7-10.4)
[2024-03-10 07:11] LABS: BUN/Creatinine Ratio 9.8 (10.0-20.0); Magnesium 1.6 mg/dL (1.6-2.6)
[2024-03-10 07:13] LABS: Phosphorus 2.3 mg/dL (2.4-5.1)
[2024-03-10 08:00] VITALS: PULSE 65; RESP 19; O2SAT 97
[2024-03-10 08:49] VITALS: BP 146/65; PULSE 65; RESP 17; TEMP 97.4; O2SAT 95
[2024-03-10 13:00] VITALS: BP 143/68; PULSE 66; RESP 17; TEMP 98.1; O2SAT 100
[2024-03-10] MEDS: POTASSIUM PHOSPHATE 22 MEQ in SODIUM CHL 0.9% 100 ML IV ONE (16:14)
== END 2024-03-10 17:18 | DRG 391 ==
LOC: EDBD 17:15 → ER 17:17 → OVERFLOW 23:29 → WEST WING 03-06 11:50
PROVIDERS: ADMIT Nurse Practitioner Family; ATTEND Nurse Practitioner
PROC: 05HB33Z Insertion of Infusion Device into Right Basilic Vein, Percutaneous Approach (ICD-10-PCS; principal; 2024-03-10)
PROC: B54MZZA Ultrasonography of Right Upper Extremity Veins, Guidance (ICD-10-PCS; 2024-03-10)
DX: K57.20 Diverticulitis of large intestine with perforation and abscess without bleeding (principal); N17.0 Acute kidney failure with tubular necrosis; I50.32 Chronic diastolic (congestive) heart failure; I13.0 Hypertensive heart and chronic kidney disease with heart failure and stage 1 through stage 4 chronic kidney disease, or unspecified chronic kidney disease; Z68.41 Body mass index [BMI] 40.0-44.9, adult; D64.9 Anemia, unspecified; K59.00 Constipation, unspecified; K21.9 Gastro-esophageal reflux disease without esophagitis; F17.210 Nicotine dependence, cigarettes, uncomplicated; I25.10 Atherosclerotic heart disease of native coronary artery without angina pectoris; E66.01 Morbid (severe) obesity due to excess calories; E86.9 Volume depletion, unspecified; K46.9 Unspecified abdominal hernia without obstruction or gangrene; K43.9 Ventral hernia without obstruction or gangrene; N18.30 Chronic kidney disease, stage 3 unspecified; E87.6 Hypokalemia; E78.5 Hyperlipidemia, unspecified; D25.9 Leiomyoma of uterus, unspecified; K40.20 Bilateral inguinal hernia, without obstruction or gangrene, not specified as recurrent; Z79.02 Long term (current) use of antithrombotics/antiplatelets; Z79.82 Long term (current) use of aspirin; Z79.899 Other long term (current) drug therapy; Z82.49 Family history of ischemic heart disease and other diseases of the circulatory system; Z83.3 Family history of diabetes mellitus; Z95.5 Presence of coronary angioplasty implant and graft
CPT/HCPCS: 36415; 71045; 74176; 80053; 80069; 81001; 82570; 82962; 83605; 83690; 83735; 84100; 84156; 84484; 85007; 85025; 85027; 86141; 87040; 93005; 93306; G0378; J2405; J2470; J3490